=== PATIENT | female | born 1945 | race Caucasian/White ===

== ENCOUNTER → 2023-11-02 14:41 | Outpatient (REF) | payer OTHER, SELFPAY | LOC: DHCBC MAIN 14:41 | PROVIDERS: ATTENDING PHYSICIAN Internal Medicine; FAMILY PHYSICIAN Family Medicine | DX: I48.21 Permanent atrial fibrillation (principal) | CPT/HCPCS: 93306 ==

== ENCOUNTER → 2024-06-20 14:47 | Outpatient (REF) | payer OTHER, SELFPAY | LOC: RCS 14:47 | PROVIDERS: ATTENDING PHYSICIAN Nurse Practitioner Gerontology; FAMILY PHYSICIAN Family Medicine; REFERRING PHYSICIAN Internal Medicine Rheumatology | DX: R06.02 Shortness of breath (principal); M25.511 Pain in right shoulder; M35.3 Polymyalgia rheumatica | CPT/HCPCS: 73030; 93225; 93226 ==

== ENCOUNTER → 2024-08-08 13:16 | Outpatient (REF) | payer OTHER, SELFPAY | LOC: REG 13:16 | PROVIDERS: ATTENDING PHYSICIAN Nurse Practitioner Family | DX: M25.552 Pain in left hip (principal); M79.652 Pain in left thigh | CPT/HCPCS: 73502 ==

== ENCOUNTER 2024-08-31 03:08 | Inpatient (IN) | payer OTHER, SELFPAY ==
[2024-08-30 20:27] LABS: % Basophils 1.2 % (0-2); % Eosinophils 2.3 % (0-6); % Immature Granulocytes 0.4 % (0-0.5); % Lymphocytes 20.6 % (20.5-51.1); % Monocytes 13.6 % (1.7-9.3); % Neutrophils 61.9 % (42.2-75.2); Absolute Basophils 0.1 10^3/uL (0-0.2); Absolute Eosinophils 0.2 10^3/uL (0-0.7); Absolute Lymphocytes 1.7 10^3/uL (1.2-3.4); Absolute Monocytes 1.1 10^3/uL (0.1-0.6); Hematocrit 34.4 % (37.0-47.0); Hemoglobin 10.4 g/dL (12.0-16.0); Mean Corp Hgb Conc. 30.2 g/dL (33.0-37.0); Mean Corpuscular Hgb 26.2 pg (27.0-31.0); Mean Corpuscular Volume 86.6 fL (81.0-99.0); Mean Platelet Volume 8.8 fL (7.4-10.4); Nucleated Red Blood Cells % 0 %; Platelet Count 508 10^3/uL (130-400); Red Blood Cell Count 3.97 10^6/uL (4.20-5.40); Red Cell Dist. Width 15.8 % (11.5-14.5); White Blood Cell Count 8.1 10^3/uL (4.8-10.8)
[2024-08-30 20:53] LABS: ALT (SGPT) 16 U/L (0-35); AST (SGOT) 27 U/L (14-36); Albumin 4.4 g/dl (3.5-5.0); Alkaline Phosphatase 74 U/L (38-126); Blood Urea Nitrogen 11 mg/dl (7-17); Calcium 9.6 mg/dl (8.4-10.2); Carbon Dioxide 34 mmol/L (22-30); Chloride 98 mmol/L (98-107); Glucose 100 mg/dl (70-99); NT-proBNP 1530 pg/ml; Potassium 5.1 mmol/L (3.5-5.1); Sodium 140 mmol/L (135-145); Total Bilirubin 0.5 mg/dl (0.2-1.3); Total Protein 7.2 g/dl (6.3-8.2); eGFR > 60.00
[2024-08-30 21:33] VITALS: BP 159/77
[2024-08-30 21:58] VITALS: BMI 31.2
[2024-08-30 22:00] VITALS: BP 140/84
--- NOTE | 2024-08-30 22:21 | ED.GENMED ---
History of Present Illness
General
Chief Complaint: Breathing Problem
Source: patient
History of Present Illness
History of Present Illness:
Pleasant 79-year-old female presents to the emergency department with shortness of breath that has been progressively worsening for 'years'. She states that for the last few days her dyspnea has been severe. She states that while at rest she
breathes normally but any type of exacerbation causing her shortness of breath. She did notice some lower extremity swelling. Denies fever or chills. Reports no chest pain. She has severe osteoarthritis and is due to see orthopedics today but
had to cancel because she could not ambulate without becoming short of breath. Patient also saw cardiology within the last few weeks. Had a Holter monitor in place that her paroxysmal atrial fibrillation was rediagnosed as atrial fibrillation.
She does take Eliquis and has not missed a dose. She is also rate controlled with diltiazem.
Past History
Past History
ED Past Medical History: HTN, Hypercholesterolemia and Other (Hyperthyroidism, atrial fibrillation); Negative CAD
ED Past Surgical History: Orthopedic
Social History
Tobacco: Non-smoker
Living: with family
Review of Systems
Review of Systems
Allergies reviewed?: Yes
All Other Systems: ROS reviewed and negative except as documented in HPI and ROS
Phy Exam
General Physical Exam
General Presentation: well appearing and no apparent distress
General Skin: warm and dry
General Habitus: normal
General Mental: alert
General Hydration: appears well hydrated
ENT Exam
ENT Exam: EOMI, pharynx normal, neck supple and normocephalic
Eye Exam
Eye Exam: PERRL, cornea clear and conjunctiva normal
Cardiovascular Exam
Cardiovascular Exam: regular rate/rhythm, no edema, no murmur and normal peripheral pulses
Pulmonary Exam
Pulmonary Exam: lungs clear, no respiratory distress, no rales, no crackles, no rhonchi, no stridor, no wheezing and no cough
Breath Sounds: Wheeze: left lower and right lower
Gastrointestinal Exam
Gastrointestinal Exam: normal bowel sounds, non tender, soft, no organomegaly, no pulsatile mass and non distended
Neurological Exam
Neurological Exam: alert, oriented x3, no motor deficits and speech normal
Musculoskeletal Exam
Musculoskeletal Exam: full ROM and no edema
Skin Exam
Skin Exam: normal color, warm/dry, no rash and no petechia
Psychiatric Exam
Psychiatric Exam: normal mood/affect
Scores
Heart Failure Risk
Heart Failure Risk Score: Yes
History of Stroke or TIA: No
History of intubation for respiratory distress: No
Heart rate on ED arrival >/= 110: No
SaO2 <90% on arrival on room air: Yes
HR >/=110 during 3min walk test (or too ill to perform test): Yes
ECG has acute ischemic changes: No
Urea >/=12mmol/L (BUN 33.6mg/dL): No
Serum CO2>/=35mmol/L: No
Troponin I or T elevated to IL Level (0.4mg/dL): No
NT-proBNP >/=5,000ng/L (5,000pg/ml): No
HF Risk Score: 3
Admission Status: HIGH RISK 15.9% Consider SNF treatment or admission to hospital
Course
Orders/Labs/Results
Orders:
Orders
08/30/24 20:10
Electrocardiogram (*1) Urgent
Reason for Study: Shortness of Breath
EKG- Treatment ONCE
08/30/24 20:21
Complete Blood Count/With Diff Urgent
Comprehensive Metabolic Panel Urgent
NT-proBNP Urgent
08/30/24 22:25
CR Chest - 2 Views Urgent
Comment:
Reason For Exam: dyspnea
08/30/24 22:31
Furosemide [Lasix] 40 mg IV NOW STA
08/30/24 23:01
Procalcitonin Urgent
PCT Algorithmm Indication: Respiratory
08/31/24 00:49
CefTRIAXone [Rocephin] 1,000 mg IV NOW STA
Dexamethasone Sod Phosphate [Decadron] 10 mg IV NOW STA
Doxycycline [Vibramycin] 100 mg PO NOW STA
08/31/24 01:23
Blood Culture Q30M
PHU Source: Blood/Venous
Specimen Description:
Blood Culture Q30M
PHU Source: Blood/Venous
Specimen Description:
Abnormal Lab Results
08/30/24
20:21
RBC 3.97 L 10^6/uL
(4.20-5.40)
Hgb 10.4 L g/dL
(12.0-16.0)
Hct 34.4 L %
(37.0-47.0)
MCH 26.2 L pg
(27.0-31.0)
MCHC 30.2 L g/dL
(33.0-37.0)
RDW 15.8 H %
(11.5-14.5)
Plt Count 508 H 10^3/uL
(130-400)
Absolute Monos (auto) 1.1 H 10^3/uL
(0.1-0.6)
Monocytes % 13.6 H %
(1.7-9.3)
Carbon Dioxide 34 H mmol/L
(22-30)
Glucose 100 H mg/dl
(70-99)
08/30/24 20:21
08/30/24 20:21
Vital Signs
Initial and Last Documented VS:
Initial Vital Signs
Temp Pulse Resp Pulse Ox
98.2 F 109 18 92
08/30/24 20:07 08/30/24 20:07 08/30/24 20:07 08/30/24 20:07
Last Documented Vital Signs
Temp Pulse Resp BP Pulse Ox
98.2 F 92 21 125/70 97
08/30/24 20:07 08/31/24 01:15 08/31/24 01:15 08/31/24 01:00 08/31/24 01:15
*Radiology
Radiology exam reviewed: radiology read reviewed (Left basilar pneumonia)
*Pulse Oximetry
Patient hypoxic: yes
*Critical Care Note
Total Time (30-74mins, 75-104mins- exclusive of procedures): Not Applicable
ED Attending Note
-
Portions of this chart may have been created with voice recognition software.� Occasional wrong word or��sound alike� substitutions may have occurred due to the inherent limitations of voice recognition software.
Discharge Plan
Departure
Prescriptions:
No Action
multivitamin [Daily Multiple] 1 EACH tablet
1 tab PO DAILY
atorvastatin 10 MG tablet
10 mg PO DAILY
diltiazem HCl 240 MG capsule,extended release 24hr
240 mg PO BID
Patient Comments:
with 120mg tab
Eliquis 5 MG tablet
5 mg PO BID
thiamine HCl (vitamin B1) 100 MG tablet
100 mg PO BID Qty: 60 0RF
metoprolol succinate 50 MG tablet extended release 24 hr
50 mg PO BID 30 Days Qty: 90 0RF
pantoprazole 40 mg Tablet,Delayed Release (Dr/Ec)
40 mg PO DAILY
Referrals:
Dennis Alonzo MD [Family Provider] -
Interventions
Interventions:
*Risk Screen - Suicide Last Done: 08/30/24 20:07
*General Assessment Last Done: 08/30/24 20:07
*Neglect/Abuse Screening Last Done: 08/30/24 20:07
ED- Fall Risk Assessment Last Done: 08/30/24 21:56
*ED COVID-19 Vaccine History Last Done: 08/30/24 20:07
ED- Cardiac Assessment Last Done: 08/30/24 21:56
ED- Pulmonary Assessment Last Done: 08/30/24 21:56
Discharge Date and Time
Print Language: FRENCH
[2024-08-30 22:54] VITALS: BP 157/84
[2024-08-30 23:00] VITALS: BP 153/104
[2024-08-30] MEDS: LASIX 40 MG IV (23:03)
[2024-08-30 23:38] LABS: Procalcitonin < 0.05 ng/ml (0.0-0.25)
[2024-08-31] VITALS (11 sets, daily range): BP systolic 98–147; BP diastolic 66–90; PULSE 93–125; O2SAT 94–98; BMI 29.5
[2024-08-31] MEDS: ROCEPHIN 1000 MG IV (01:25)
[2024-08-31] MEDS: DECADRON 10 MG IV (01:25)
[2024-08-31] MEDS: VIBRAMYCIN 100 MG PO (01:25)
--- NOTE | 2024-08-31 02:57 | HPS.HSE ---
Family Physician
-
Family Physician: Dennis Alonzo
Chief Complaint
-
SOB
History of Present Illness
Patient is an 79y F with PMH significant for A-Fib, thyroid disease and DJD who presents to ED complaining of SOB. Patient states that she has had progressive dyspnea over the past few weeks to months. She notes that she becomes SOB with
activity and - more recently - even with conversation. She denies any chest pain, orthopnea, cough, fevers or chills. She has noted swelling of the ankles over the past week or so. With worsening symptoms, she called her PCP this evening and was
directed to present to the ED for evaluation.
Medical History
Past Medical History
Past Medical History: Reports Other
Additional Past Medical History:
Paroxysmal Atrial Fibrillation
Polymyalgia Rheumatica
DJD
Hypothyroidism
Hypertension
GERD / Gastric Ulcer / Hiatal Hernia
Spinal Stenosis
Iron Deficiency Anemia
Past Surgical History: Reports Other
Additional Past Surgical History:
Carpal Tunnel Release
Right CHER
DCCV x 2
Social History
Tobacco: Former Smoker (Quit smoking 50 years ago. Approx 10 pack years total use.)
Alcohol: None
Drug: None
Family History
Family History: Not pertinent
Allergies / Home Medications
Allergies reflects when Allergies were last updated in [facility].
Home Medications with original date entered in [facility]
Allergy/Medication List:
Allergies
Allergy/AdvReac Type Severity Reaction Status Date / Time
Penicillins Allergy Rash Verified 08/30/24 20:10
Home Medications
multivitamin (Daily Multiple tablet) 1 tab PO DAILY Supplement 03/19/13
atorvastatin 10 mg tablet 10 mg PO DAILY High cholesterol 10/03/15
apixaban 5 mg tablet (Eliquis) 5 mg PO BID Blood clot prevention/tx 05/23/20
diltiazem HCl 240 mg capsule,extended release 24 hr 240 mg PO BID Blood pressure 05/23/20
thiamine HCl (vitamin B1) 100 mg tablet 100 mg PO BID #60 tabs 05/29/20
metoprolol succinate 50 mg tablet,extended release 24 hr 50 mg PO BID 30 days #90 tabs 05/30/20
pantoprazole 40 mg tablet,delayed release 40 mg PO DAILY 08/31/24
Review of Systems
-
History Source: Patient
A 12 point ROS was completed and negative except as noted: Yes
Constitutional: Reports Fatigue; Denies Fever or Chills
EENT: Denies Sore Throat
Respiratory: Reports Trouble Breathing; Denies Cough
Cardiac: Denies Chest Pain or Palpitations
Abdomen/GI: Denies Abdominal Pain, Nausea, Vomiting or Diarrhea
: Denies Dysuria, Frequency or Flank Pain
Musculoskeletal: Reports Joint Pain and Edema; Denies Muscle Pain
Neurological: Denies Dizzy or Headache
Psych: Denies Depression or Anxiety
Physical Exam
Vital Signs
Vital Signs
Temp Pulse Resp BP Pulse Ox
98.2 F 97 25 138/69 95
08/30/24 20:07 08/31/24 02:15 08/31/24 02:15 08/31/24 02:00 08/31/24 02:15
Physical Exam
General: Other (79y F in no acute distress.)
HEENT: Moist mucous membranes, PERRLA and Other (No JVD / HJR)
Respiratory: Other (Few bibasilar rales. No wheeze / rhonchi.)
Cardiac: S1/S2, Irregular Rhythm and Murmur (II/ MICHAEL)
GI: Soft, Non Tender, Non Distended and Normal Bowel Sounds
Musculoskeletal: No Clubbing, No Cyanosis and Other (1+ pitting edema b/l ankles.)
Neuro: AO x 3
Laboratory Results
-
08/30/24 20:21
08/30/24 20:21
Laboratory Results
Total Bilirubin 0.5 mg/dl (0.2-1.3) 08/30/24 20:21
AST 27 U/L (14-36) 08/30/24 20:21
ALT 16 U/L (0-35) 08/30/24 20:21
Alkaline Phosphatase 74 U/L (38-126) 08/30/24 20:21
Impression/Plan
-
A/P: Patient is an 79y F with PMH significant for A-Fib, hypertension and hypothyroidism who presents to ED complaining of progressive SAUL over the past several weeks / months.
Acute HF - Suspected Preserved EF
- Admit for further evaluation and treatment.
- No prior h/o CHF. Echo done 10/2023 with > 75% EF with mild AR and mild pulm HTN.
- Gradual / progressive nature of symptoms with LE edema and absence of cough / infectious symptoms suggestive of CHF.
- IV Lasix given in the ED with effective diuresis.
- Continue IV Lasix daily for now and follow I/Os, daily weights and symptoms.
- Update Echo.
- Cardiology evaluation for additional recommendations.
- Check TFTs.
LLL Lesion
- CXR done in the ED with rounded opacity at the L base.
- No cough, fever, leukocytosis, etc.
- Procalcitonin is undetectable.
- Symptoms not suggestive of pneumonia / infectious process.
- Check CT chest for further evaluation.
- Consider Pulmonary evaluation depending on results.
Paroxysmal Atrial Fibrillation
- Currently in A-Fib with controlled ventricular rates.
- Continue current rate control medications with holding parameters.
- Continue Eliquis for stroke risk reduction.
Benign Hypertension
- Stable. Holding parameters as noted above.
- Follow for changes with IV diuresis.
Hypothyroidism
- Patient with documented history of thyroid disease with Graves and hypothyroidism
- Not currently on any T4 replacement.
- Check TFTs and add replacement therapy if necessary.
Polymyalgia Rheumatica
DJD
- Chronic pain / ambulatory dysfunction long attributed to PMR.
- More recently evaluated by Ortho and noted to have diffuse / advanced DJD (shoulder, L hip, etc).
- Has had ambulatory dysfunction due to pain - recently worsened with added dyspnea component.
- PT / OT evaluations.
- Follow-up with Ortho as an outpatient.
GERD
Hiatal Hernia
- Stable. No symptoms of heartburn / reflux.
- Continue PPI daily - especially given h/o bleeding ulcer and chronic anticoagulation.
Chronic Anemia
- Iron deficiency according to outpatient records.
- Hgb currently above usual baseline.
- Follow for any changes.
DVT Prophylaxis: Eliquis
Code Status: DNR
--- NOTE | 2024-08-31 05:22 | PTCARENOTE ---
Pt received on unit at approximately 0430. Pt pulled over in bed. Pt AAOx3 VSS placed on tele. Ptoriented to room and able to make needs known.
[2024-08-31 08:56] LABS: Hematocrit 34.3 % (37.0-47.0); Hemoglobin 10.2 g/dL (12.0-16.0); Mean Corp Hgb Conc. 29.7 g/dL (33.0-37.0); Mean Corpuscular Hgb 25.5 pg (27.0-31.0); Mean Corpuscular Volume 85.8 fL (81.0-99.0); Mean Platelet Volume 9.1 fL (7.4-10.4); Platelet Count 492 10^3/uL (130-400); Red Cell Dist. Width 15.7 % (11.5-14.5); White Blood Cell Count 7.1 10^3/uL (4.8-10.8)
[2024-08-31] MEDS: PROTONIX 40 MG PO (09:00)
[2024-08-31] MEDS: VITAMIN B1 100 MG PO ×2 (09:00→19:30)
[2024-08-31] MEDS: TOPROL XL 50 MG PO ×3 (09:00→22:48)
[2024-08-31] MEDS: LIPITOR 10 MG PO (09:01)
[2024-08-31] MEDS: ELIQUIS 5 MG PO ×2 (09:01→19:30)
[2024-08-31] MEDS: CARDIZEM CD 240 MG PO ×2 (09:04→19:30)
[2024-08-31] MEDS: LASIX 40 MG IV (09:05)
--- NOTE | 2024-08-31 09:05 | CON.CAR ---
Addendum entered and electronically signed by Jaziel Carney MD 08/31/24 11:57:
79-year-old female history of permanent atrial fibrillation on Eliquis, hypertension, hyperlipidemia,right bundle branch block, PAD and PMR presents for acute on chronic dyspnea on exertion. She has had shortness of breath with exertion for 8 years
with recent worsening. Of note in the past echocardiogram showed mildly elevated pulmonary pressure 47 mmHg with an IVC that did not collapse. She had intermittently tried Lasix with no improvement of symptoms. She had an ischemic evaluation for
the same symptoms 3 years ago. She has PFTs planned for next month. Currently, she states she feels so much better if she wears oxygen. However when I watched her ambulate to the bathroom, telemetry does show elevated heart rates in the 120s. On
exam, she has in a irregularly irregular rate and rhythm with no murmur. Lungs are clear to auscultation bilaterally. Extremities are warm well-perfused. Echo reviewed above. Telemetry reviewed above. Acute on chronic dyspnea in the setting of
mild pulmonary hypertension, atrial fibrillation with rapid ventricular response, deconditioning in the setting of severe arthritis. All of these issues are playing a role likely. I will increase her morning rate control as her accelerated rates
with exertion may be adding to her symptoms. Metoprolol 100 mg in the morning and 50 mg in the evening will be ordered. She has had a brisk response to IV Lasix. Certainly with her echo findings I would think this would help her feel better.
Will transition to an every other day Lasix standing dose. I will update her echocardiogram to ensure no acute worsening of her pulmonary hypertension. I encouraged her to follow-up with the PFTs that are scheduled for September. If echocardiogram
is without significant abnormality would recommend discharging home on new drug regimen. Close follow-up will be arranged.
Original Note:
Consultation
Consultation Request
Date/Time Consultation Requested: 08/31/24 4:30a
Date/Time Consultation Performed: 08/31/24 9a
Requesting Provider: Dr. Rao
Performing Provider: YONATAN Hurst for Dr. Carney
Reason for Consultation: CHF
Medical History
-
Chief Complaint: sob
History of Present Illness:
Mrs. Jones is an 79 yo female with permanent Afib on Eliquis, HTN, hyperlipidemia, RBBB, PAD, and PMR on steroids, who presents to the ER with c/o SOB for the last 8 years. She has tried Lasix as an outpatient (Lasix 40mg PRN) without
improvement. We are consulted for SOB. She was given IV Lasix in the ER and her weight decreased but she denies SOB is any better.
Past Medical History
Past Medical History: Other (as above)
Past Surgical History: Other (as above)
Social History
Tobacco: Non-Smoker
Living: Alone
Family History
Family History: Reviewed & Not Pertinent
Allergies / Home Medications
Allergy/AdvReac Type Severity Reaction Status Date / Time
Penicillins Allergy Rash Verified 08/30/24 20:10
�Medication �Instructions �Recorded �Confirmed �Type
multivitamin (Daily Multiple 1 tab PO DAILY Supplement 03/19/13 08/31/24 History
tablet)
atorvastatin 10 mg tablet 10 mg PO DAILY High cholesterol 10/03/15 08/31/24 History
apixaban 5 mg tablet (Eliquis) 5 mg PO BID Blood clot 05/23/20 08/31/24 History
prevention/tx
diltiazem HCl 240 mg 240 mg PO BID Blood pressure 05/23/20 08/31/24 History
capsule,extended release 24 hr
thiamine HCl (vitamin B1) 100 mg 100 mg PO BID #60 tabs 05/29/20 08/31/24 Rx
tablet
metoprolol succinate 50 mg 50 mg PO BID 30 days #90 tabs 05/30/20 08/31/24 Rx
tablet,extended release 24 hr
pantoprazole 40 mg tablet,delayed 40 mg PO DAILY 08/31/24 08/31/24 History
release
Review of Systems
-
History Source: Patient
All other systems: Negative unless noted
Physical Exam
Vital Signs
Temp Pulse Resp BP Pulse Ox
98 F 106 19 124/78 95
08/31/24 07:34 08/31/24 07:34 08/31/24 07:34 08/31/24 07:34 08/31/24 07:34
Lab Results
08/31/24 08:41
[id number] Pept 1530 pg/ml 08/30/24 20:21
Physical Exam
General: Well Developed and Well Nourished
HEENT: Normocephalic and Moist Mucous Membranes
Respiratory: Non Labored Respirations and Other (diminished b/l bases)
Cardiac: S1/S2 and Irregular Rhythm
Breast: Deferred by me
GI: Soft, Non Tender, Non Distended and Normal Bowel Sounds
Genito-urinary: No Costovertebral Tender
Musculoskeletal: No Clubbing, No Cyanosis and No Edema
Skin: Warm and Dry
Neuro: AO x 3
Hematologic/Lymphatic: No Lymphadenopathy
Psych: Calm
Impression / Plan
-
SOB - acute on chronic.
- agree with diuresis, continue.
- at home she does not use PRN Lasix as she feels this does not help her SOB.
- she had a Lexiscan 2020 w/o ischemia and has refused further testing.
- management per primary service, O2.
- PFTs ordered as an outpatient, moderate obstruction on PFT in 2016.
- check echo.
Afib - permanent.
- rate controlled on Diltiazem and Toprol, continue.
- OAC with Eliquis, continue.
- asymptomatic.
HTN - well controlled on meds, continue.
HLD - stable on Lipitor, continue.
Data Reviewed
-
EKG: Tracing Personally Visualized and interpreted
Radiology: Report Reviewed by me (cxr: left basilar PNA)
Medical Tests (Nuc Med, Echo etc): Report Reviewed by me (echo 2020: EF 55-60%, mild cLVH, mild MR/AR, PASP 46mmHg.)
Labs: Labs Reviewed by me
Old Records: Reviewed
[2024-08-31 09:22] LABS: Troponin I 0.013 ng/ml
[2024-08-31 10:08] LABS: Blood Urea Nitrogen 12 mg/dl (7-17); Calcium 9.6 mg/dl (8.4-10.2); Carbon Dioxide 33 mmol/L (22-30); Chloride 96 mmol/L (98-107); Estimated Creatinine Clearance 52 ml/min; Glucose 141 mg/dl (70-99); HDL Cholesterol 61 mg/dl; LDL Cholesterol, Calculated 74 mg/dl; Potassium 4.4 mmol/L (3.5-5.1); Sodium 140 mmol/L (135-145); Total Cholesterol 147 mg/dl (50-199); Triglyceride 61 mg/dl (10-149); Very Low Density Lipoprotein 12 mg/dl (0-30); eGFR > 60.00
--- NOTE | 2024-08-31 10:13 | CM ---
Patient seen at bedside in [facility]. Patient stated that she lives alone in a split level with 6 step to enter and 6 steps to utility room. Patient has a walker and a cane at home. Patient PCP is Dr. Alonzo and she uses the [facility] in [place]. Patient
is driving and stated that she is independent of adl's. Patient plan is to go home with VN vs home with no needs.
Plan; home with VN vs SNF; pending assessment
[2024-08-31 11:08] LABS: TSH Reflex To Free T4 0.75 uIU/ml (0.47-4.68)
--- NOTE | 2024-08-31 11:12 | W.PN.HOSP.TC ---
Addendum entered and electronically signed by Hussein Camacho MD 08/31/24 14:55:
Seen and examined by me independently in collaboration with the emergency medical service coordinator.
Lab data and imaging data reviewed.
Addendum as below :
Patient presented with increasing shortness of breath. She also had associated weakness and tiredness with it. No chest pains.
Patient currently on nasal cannula without respiratory distress. Chest sounds clear. Few left basal crackles heard. Trace lower extremity edema.
Weight is not too far away from the baseline but decrease the since admission and diuresis. She has not seen much of change with regards to breathing she says.
Clinical concern is of heart failure. Continue with diuresis and follow the progress. Also follow on telemetry to make sure there is no rate control issues with A-fib accounting for the symptoms. Echo pending. Cardiology following.
Chronic left basilar opacity which is suspect probably atelectasis secondary to moderate hiatus hernia. Clinically she is not acting like infectious pneumonia. Procalcitonin normal. Continue to hold antibiotics. CT of the chest pending.
Original Note:
Today's Communication/Plan
-
Pending CT chest
Pending echo
Appreciate cardiology input
Assessment / Plan
Assessment / Plan
Patient is an 79y F with PMH significant for A-Fib, thyroid disease and DJD who presents to ED complaining of SOB.
#Acute heart failure, suspected preserved ejection fraction
Echo in October of this year showed ejection fraction greater than 75% with mild aortic regurgitation and mild pulmonary hypertension
Repeat echo today
Progressive lower extremity edema with dyspnea, without cough
Continue IV diuresis with Lasix
Follow ins and outs/daily weights and symptoms
Cardiology following appreciate input
Check TFTs
#Left lower lobe lesion
Chest x-ray in ED showed rounded opacity at left base
No cough, fever, leukocytosis
Procalcitonin negative
Pending chest CT today
Consider pulmonology consult
#Paroxysmal A-fib
Per cardiology recommendations, metoprolol 100 in the morning and 50 in the evening. Every other day standing Lasix dose at home.
Continue Eliquis
#Benign hypertension
Stable
Follow for changes with IV diuresis
#Hypothyroidism
History of thyroid disease with Graves' and hypothyroidism
No current management
Add replacement therapy if needed
#Polymyalgia rheumatica
Chronic pain and dysfunction for a long time attributed to PMR
PT OT
Follow-up with Ortho outpatient
#GERD and hiatal hernia
Stable
Continue PPI
#Chronic anemia
Hemoglobin above baseline
Continue to follow
DVT prophylaxis�Eliquis
DNR
Anticipated Discharge: Within 24 hours
Subjective/Interval History
-
Date of Service: August 31, 2024
Patient is an 79y F with PMH significant for A-Fib, thyroid disease and DJD who presents to ED complaining of SOB. She reports that overnight she has diuresed significantly and feels better. She reports no headaches, nausea, vomiting, chest
pain, or abdominal pain. She still reports mild shortness of breath.
Objective Data
-
Labs:
Laboratory Results
08/31/24
08:41
WBC 7.1
Hgb 10.2 L
Hct 34.3 L
Plt Count 492 H
Sodium 140
Potassium 4.4
Chloride 96 L
Carbon Dioxide 33 H
BUN 12
Creatinine 0.7
Glucose 141 H
Calcium 9.6
Vital Signs:
Vital Signs
Temp Pulse Resp BP Pulse Ox
98 F 106 19 124/78 95
08/31/24 07:34 08/31/24 07:34 08/31/24 07:34 08/31/24 07:34 08/31/24 07:34
I&O
08/30/24 08/31/24 09/01/24
06:59 06:59 06:59
Output Total 4015 / 1475
Balance -1475 / -1475
Review of Systems
-
History Source: Patient
Constitutional: Reports No Symptoms
EENT: Reports No Symptoms Reported
Respiratory: Reports Trouble Breathing
Cardiac: Reports No Symptoms
Abdomen/GI: Reports No Symptoms
Genitourinary: Reports Frequency (Secondary to Lasix)
Musculoskeletal: Reports No Symptoms
Skin: Reports No Symptoms
Neuro: Reports No Symptoms
Physical Exam
-
General: Well Developed, Well Nourished, No Apparent Distress, Comfortable and Conversant
HEENT: Normocephalic and Atraumatic
Respiratory: Rales
Cardiac: S1/S2 and Irregular Rhythm
GI: Soft, Nontender, Nondistended and Normal Bowel Sounds
Musculoskeletal: No Clubbing, No Cyanosis, Edema, Right Lower Extrem and Edema, Left Lower Extrem
Skin: Warm and Dry
Neuro: AO x 3
Psych: Calm
Data Reviewed
-
Diagnostic Radiology: Report Reviewed by me
Labs: Labs Reviewed by me and Discussed with Physician
Old Records: Reviewed
[2024-08-31 11:18] LABS: Troponin I 0.014 ng/ml
[2024-08-31 16:42] LABS: Troponin I 0.014 ng/ml
[2024-09-01 02:48] VITALS: BP 114/60
[2024-09-01 07:00] VITALS: BP 130/65
[2024-09-01] MEDS: PROTONIX 40 MG PO (08:35)
[2024-09-01] MEDS: CARDIZEM CD 240 MG PO (08:35)
[2024-09-01] MEDS: LIPITOR 10 MG PO (08:36)
[2024-09-01] MEDS: VITAMIN B1 100 MG PO (08:36)
[2024-09-01] MEDS: TOPROL XL 100 MG PO (08:37)
[2024-09-01] MEDS: ELIQUIS 5 MG PO (08:38)
[2024-09-01 11:00] VITALS: BP 138/73
--- NOTE | 2024-09-01 11:11 | W.PN.HOSP.TC ---
Today's Communication/Plan
-
dc
Assessment / Plan
Assessment / Plan
Patient is an 79y F with PMH significant for A-Fib, thyroid disease and DJD who presents to ED complaining of SOB.
#Acute heart failure preserved ejection fraction
Echo in October of this year showed ejection fraction greater than 75% with mild aortic regurgitation and mild pulmonary hypertension
Repeat echo LVEF is 65-70% by visual estimation
Progressive lower extremity edema with dyspnea, without cough
Diuresis changed to p.o. every 48 hours
Improved weight
Cardiology following -appreciate input
#Left lower lobe lesion
Chest x-ray in ED showed rounded opacity at left base
No cough, fever, leukocytosis
Procalcitonin negative
chest CT shows atelectasis adjacent to the left paraesophageal hiatus hernia
No further eval recommended
#Paroxysmal A-fib
Per cardiology recommendations, metoprolol 100 in the morning and 50 in the evening. Every other day standing Lasix dose at home.
Continue Eliquis
#Benign hypertension
Stable
Follow for changes with IV diuresis
#Hypothyroidism
History of thyroid disease with Graves' and hypothyroidism
No current management
Add replacement therapy if needed
#Polymyalgia rheumatica
Chronic pain and dysfunction for a long time attributed to PMR
PT OT
Follow-up with Ortho outpatient
#GERD and hiatal hernia
Stable
Continue PPI
#Chronic anemia
Hemoglobin above baseline
Continue to follow
DVT prophylaxis�Eliquis
DNR
Oxygenation levels for fine and ambulation with PT yesterday.
DC home today.
Anticipated Discharge: Today
Subjective/Interval History
-
Date of Service: September 01, 2024
Feeling improved. Denies shortness of breath. No palpitations or chest pain.
Tolerating diet.
Objective Data
-
Vital Signs:
Vital Signs
Temp Pulse Resp BP Pulse Ox
98.2 F 84 18 130/65 95
09/01/24 07:00 09/01/24 07:00 09/01/24 07:00 09/01/24 07:00 09/01/24 07:00
I&O
08/31/24 09/01/24 09/02/24
06:59 06:59 06:59
Intake Total 720 / 720
Output Total 1475 / 1475
Balance -1475 / -1475 720 / 720
Review of Systems
-
Constitutional: Denies Fever
EENT: Denies Sore Throat
Respiratory: Denies Cough
Neuro: Denies Dizzy
Physical Exam
-
General: No Apparent Distress
HEENT: Moist Mucous Membranes
Respiratory: Clear to Auscultation
Cardiac: Regular Rhythm and S1/S2
GI: Soft
Neuro: AO x 3
Psych: Calm
--- NOTE | 2024-09-01 12:51 | CM ---
Chart reviewed and patient is a possible new CHF patient, visiting nurse options reviewed with patricio and patient is agreeable to [facility]. Referral sent to [facility].
Plan; Home with [facility], friend to transport.
--- NOTE | 2024-09-01 15:39 | W.DCSUMMARY ---
Discharge Summary
Discharge Data
Date of Admission: 08/31/24
Date of Discharge: 09/01/24
-
Pending Results: No
Hospital Course
Primary diagnosis:
Acute heart failure with preserved EF
Paroxysmal atrial fibrillation
Secondary diagnosis:
Left paraesophageal hiatus hernia-asymptomatic
Benign hypertension
Hypothyroidism
Hospital course:
Patient with history of permanent atrial fibrillation on Eliquis, hypertension presented with shortness of breath with exertion with recent worsening. She had shortness of breath for a long time but got worsened recently. Her lungs were clear and
there was a concern about the left basal chronic opacity. She did not have clinical symptoms of pneumonia.
She had a prior echocardiogram which showed mildly elevated pulmonary pressures of 47 mmHg with an IVC that did not collapse. She also had atrial fibrillation with some rapid ventricular response and there is also deconditioning in setting of
severe arthritis. The clinical suspicion was of acute heart failure. She had a echocardiogram which showed EF of 65 to 70%, mild concentric LVH and estimated pulm artery pressures of 19 mmHg which is an improvement compared to previous echo.
She was put on Lasix and her weight did decrease from 154 pounds to 148 pounds. She was not hypoxic. Cardiology recommended to continue with Lasix every other day going forward.
Also with regards to her A-fib rates that they increase the metoprolol to 100 mg in the morning and The 50 mg at night.
With regards left basal opacity noted on the chest x-ray she had a chest CT which showed left paraesophageal head dystonia and an associated atelectasis. No evidence of consolidation or mass. Again she was not hypoxic. She was not symptomatic
from her hiatus hernia at the current time.
Consultants on board:
Cardiology-Haydee Fong
Discharge Plan
-
Patient Disposition: Home (Routine Discharge)
Discharge Diagnosis/Procedures: Acute heart failure with preserved EF
Diet: 2 Gram Sodium
Activity: As tolerated
Driving Restrictions: As prior to admission
Bathing Restrictions: None
Specialty Instructions: Weigh Daily- Call MD for wt gain/loss 3 lbs overnight/5 lbs in 1 week
Instructions: *CBC Heart Failure Instructions
Referrals:
Dennis Alonzo MD [Family Provider] - in less than 1 week
Kristel Denney CRNP [Specified Professional Personl] - 09/24/24 3:00 pm
Prescriptions:
New
furosemide 40 mg Tablet
40 mg PO Q48H Qty: 30 0RF
metoprolol succinate 100 mg Tablet Extended Release 24 Hr
100 mg PO DAILY Qty: 30 0RF
Rx Instructions:
Dose changed from 50 mg twice a day to 100 mg in the morning and 50 in the evening
Continued
multivitamin [Daily Multiple] 1 EACH tablet
1 tab PO DAILY
atorvastatin 10 MG tablet
10 mg PO DAILY
diltiazem HCl 240 MG capsule,extended release 24hr
240 mg PO BID
Patient Comments:
with 120mg tab
Eliquis 5 MG tablet
5 mg PO BID
thiamine HCl (vitamin B1) 100 MG tablet
100 mg PO BID Qty: 60 0RF
pantoprazole 40 mg Tablet,Delayed Release (Dr/Ec)
40 mg PO DAILY
Changed
metoprolol succinate 50 MG tablet extended release 24 hr
50 mg PO HS 30 Days Qty: 90 0RF
Rx Instructions:
Dose changed from 50 mg twice a day to 100 mg in the morning and 50 in the evening
Discharge Orders:
Discharge Patient (As Directed); Ordered 09/01/24
Ordered By: Hussein Camacho
Discharge Date and Time
Print Language: ARABIC
== END 2024-09-01 16:30 | disposition home health service (06) | DRG 291 ==
LOC: 4 WEST ACU 03:08
PROVIDERS: Emergency Medicine; ADMITTING PHYSICIAN Hospitalist; ATTENDING PHYSICIAN Internal Medicine; CONSULT PHYSICIAN Internal Medicine Cardiovascular Disease; EMERGENCY PHYSICIAN Student in an Organized Health Care Education/Training Program; FAMILY PHYSICIAN Family Medicine
DX: I11.0 Hypertensive heart disease with heart failure (principal); I50.31 Acute diastolic (congestive) heart failure; I48.21 Permanent atrial fibrillation; J98.11 Atelectasis; E03.9 Hypothyroidism, unspecified; E07.9 Disorder of thyroid, unspecified; M19.019 Primary osteoarthritis, unspecified shoulder; M35.3 Polymyalgia rheumatica; G89.29 Other chronic pain; K21.9 Gastro-esophageal reflux disease without esophagitis; K44.9 Diaphragmatic hernia without obstruction or gangrene; D50.9 Iron deficiency anemia, unspecified; Z66 Do not resuscitate; Z79.01 Long term (current) use of anticoagulants; Z59.89 Other problems related to housing and economic circumstances
CPT/HCPCS: 71046; 71260; 80048; 80053; 80061; 83880; 84145; 84443; 84484; 85025; 85027; 87040; 93005; 93306; 96374; 96375; 97162; 97166; 99285; Q9967

== ENCOUNTER → 2024-12-12 12:15 | Outpatient (REF) | payer OTHER, SELFPAY | LOC: PAVMRI 12:15 | PROVIDERS: ATTENDING PHYSICIAN Physical Medicine & Rehabilitation; FAMILY PHYSICIAN Family Medicine | DX: M54.16 Radiculopathy, lumbar region (principal) | CPT/HCPCS: 72148 ==

== ENCOUNTER → 2024-12-26 12:53 | Outpatient (REF) | payer OTHER, SELFPAY | LOC: RCS 12:53 | PROVIDERS: ATTENDING PHYSICIAN Physical Medicine & Rehabilitation; FAMILY PHYSICIAN Family Medicine | DX: Z01.818 Encounter for other preprocedural examination (principal) | CPT/HCPCS: 93005 ==

== ENCOUNTER → 2025-05-07 11:54 | Outpatient (REF) | payer OTHER, SELFPAY | LOC: RAD 11:54 | PROVIDERS: ATTENDING PHYSICIAN Internal Medicine; FAMILY PHYSICIAN Family Medicine | DX: Z87.891 Personal history of nicotine dependence (principal); I50.32 Chronic diastolic (congestive) heart failure | CPT/HCPCS: 71046 ==

== ENCOUNTER → 2025-05-24 13:33 | Outpatient (REF) | payer OTHER, SELFPAY | LOC: RCS 13:33 | PROVIDERS: ATTENDING PHYSICIAN Internal Medicine; FAMILY PHYSICIAN Family Medicine | DX: I50.32 Chronic diastolic (congestive) heart failure (principal) | CPT/HCPCS: 93306 ==

== ENCOUNTER 2025-08-20 20:25 | Inpatient (IN) | payer OTHER, SELFPAY ==
[2025-08-20] VITALS (8 sets, daily range): BP systolic 119–150; BP diastolic 56–99; BMI 35.7; BMI 26.8
[2025-08-20 17:26] LABS: Hematocrit 35.9 % (37.0-47.0); Hemoglobin 11.9 g/dL (12.0-16.0); Mean Corp Hgb Conc. 33.1 g/dL (33.0-37.0); Mean Corpuscular Volume 94.7 fL (81.0-99.0); Nucleated Red Blood Cells % 0 %; Platelet Count 364 10^3/uL (130-400); Red Cell Dist. Width 16.8 % (11.5-14.5)
[2025-08-20 17:42] LABS: ALT (SGPT) 12 U/L (0-35); AST (SGOT) 22 U/L (14-36); Albumin 4.7 g/dl (3.5-5.0); Alkaline Phosphatase 89 U/L (38-126); Blood Urea Nitrogen 9 mg/dl (7-17); Calcium 9.6 mg/dl (8.4-10.2); Carbon Dioxide 32 mmol/L (22-30); Chloride 92 mmol/L (98-107); Glucose 128 mg/dl (70-99); Potassium 4.4 mmol/L (3.5-5.1); Sodium 132 mmol/L (135-145); Total Protein 7.6 g/dl (6.3-8.2); eGFR > 60.00
[2025-08-20 17:48] LABS: COVID-19 Antigen Negative (Negative)
--- NOTE | 2025-08-20 17:51 | ED.GENMED ---
History of Present Illness
General
Chief Complaint: Breathing Problem
Time Seen by Provider: 08/20/25 17:51
History of Present Illness
History of Present Illness:
FOCUSED PAST MEDICAL HISTORY
- Former smoker, A-fib, high blood pressure, thyroid disease.
REVIEW OF OLD RECORDS
- Patient reportedly had room air sat of 79% at urgent care
- BNP was 1530 1 year ago
- The admission from August up to indicate the patient was admitted with HFpEF
- Prior CT showed large paraesophageal hiatal hernia
- Echo May 2025 showed EF 65 to 70% mild aortic stenosis and tricuspid regurgitation as progressed to mild/moderate
Note:
CHIEF COMPLAINT(S)
Low oxygen saturation and leg swelling.
HISTORY OF PRESENT ILLNESS
The patient is an 80-year-old female with a past medical history significant for heart failure, who presented with concerns regarding low oxygen saturation and leg swelling. The patient was evaluated at an urgent care center where her oxygen
saturation level was noted to be 72%. She normally does not require supplemental oxygen. The patient avoided taking her prescribed furosemide (Lasix) due to the frequent urination it causes, which may have contributed to her current symptoms of leg
swelling.
Her cardiac evaluation history includes having seen both a plastic injection mold maker and fur vault attendant, with recorded B-type Natriuretic Peptide (BNP) levels rising from 1,500 a year ago to 3,500, suggestive of worsening heart failure. She denied any recent
chest pain, but reported general body aches. Breath sounds revealed diminished air movement and the presence of crackles, suggesting pulmonary fluid accumulation. No imaging, such as a chest x-ray, has been performed yet during this visit.
The patients condition outside the hospital revealed oxygen saturation levels fluctuating, initially recorded as 72% at urgent care. After a nebulizer treatment, her saturation dropped to 91% by the time she entered her car, prompting further
evaluation.
PAST MEDICAL AND SURGICAL HISTORY
History of heart failure.
EXTERNAL RECORDS REVIEWED
According to previous records from a hospital visit in August, the patient has documented heart failure.
CHRONIC MEDICAL CONDITIONS SIGNIFICANTLY AFFECTING CARE
Heart failure.
SOCIAL HISTORY
The patient does not usually use supplemental oxygen.
REVIEW OF SYSTEMS
- General: Reported body aches.
- Cardiovascular: Leg swelling noted.
- Respiratory: Low oxygen saturation; diminished breath sounds with crackles.
PHYSICAL EXAM
General: Awake and alert, no significant respiratory distress, sats are 96% on 6 L
Skin: Warm, dry.
Head: Normocephalic, atraumatic.
Neck: Supple, trachea midline.
Eye Ears, nose, mouth and throat: Oral mucosa moist.
Cardiovascular: Normal peripheral perfusion, 1+ bilateral lower extremity edema
Respiratory: Respirations are non-labored; diminished breath sounds with faint crackles
Gastrointestinal: Abdomen nondistended.
Back: Normal range of motion, Normal alignment.
Musculoskeletal: Normal ROM, normal strength.
Neurological: Alert and oriented to person, place, time, and situation, No focal neurological deficit observed.
Psychiatric: Cooperative, appropriate mood & affect.
PLAN
The plan includes obtaining a chest x-ray to investigate pulmonary fluid accumulation, considering hospital admission based on oxygen saturation levels, and discussing the necessity of furosemide (Lasix) use for managing fluid retention.
DIFFERENTIAL DIAGNOSIS
The Differential Diagnosis includes, in no particular order and is not limited to:
1. Heart failure exacerbation.
2. Chronic obstructive pulmonary disease.
3. Pneumonia.
4. Pulmonary edema.
5. Pulmonary embolism.
6. Acute respiratory distress syndrome.
7. Pleural effusion.
8. Asthma exacerbation.
9. Anemia.
10. Renal insufficiency.
RADIOLOGY
- Chest x-ray by my read shows pulmonary vascular congestion
EKG
- A-fib 95, right axis deviation, incomplete right bundle branch block
LABS
- BNP 3510
UPDATE
-SUMMARY OF ENCOUNTER
The patient, an 80-year-old female with a history of heart failure, was seen in the emergency department due to concerns about low oxygen saturation and leg swelling. At urgent care, her oxygen saturation was noted to be as low as 72%, but improved
with nebulizer treatment and supportive care. During the visit, a chest x-ray was reviewed, revealing possible fluid accumulation, indicative of pulmonary edema or heart failure exacerbation. Given her condition and the fact that she has not adhered
to furosemide (Lasix) therapy, it was recommended that she be admitted for further monitoring and to manage her fluid status with diuretics.
DISPOSITION
Admit
ASSESSMENT
The patient presents with symptoms suggestive of heart failure exacerbation, likely due to fluid overload from noncompliance with diuretic therapy.
PLAN
Obtain admission to the hospital for close monitoring and administration of intravenous diuretics (furosemide) to manage fluid overload. Continue supplemental oxygen therapy as needed to maintain oxygen saturation levels. Monitor fluid balance and
adjust diuretic therapy accordingly based on response.
INDEPENDENT REVIEW OF LABS AND INTERPRETATION OF TESTS
My independent interpretation of the chest x-ray shows a possible fluid buildup, consistent with pulmonary edema, suggestive of heart failure exacerbation.
MEDICATION RECONCILIATION
Prescription medication management includes initiation of furosemide (Lasix) therapy to manage pulmonary fluid accumulation and improve symptoms of heart failure exacerbation.
MEDICAL DECISION MAKING
- Number and Complexity of Problems Addressed: Chronic conditions affecting care include heart failure. Differential Diagnosis includes heart failure exacerbation, chronic obstructive pulmonary disease, pneumonia, pulmonary edema, pulmonary
embolism, acute respiratory distress syndrome, pleural effusion, asthma exacerbation, anemia, and renal insufficiency.
- Data:
- Category 1: Non-emergency department records reviewed. External record reviewed and previously documented heart failure exacerbation were noted.
- Category 3: Discussion of management with the hospital plastic injection mold maker was made for admission to manage fluid overload and heart failure symptoms.
- Risk: Prescription medication management included administration of furosemide for the treatment of fluid overload.
DIAGNOSIS
Heart failure exacerbation (ICD-10 code: I50.9)
Past History
Past History
ED Past Medical History: HTN, Hypercholesterolemia and Other (Hyperthyroidism, atrial fibrillation); Negative CAD
ED Past Surgical History: Orthopedic
Social History
Tobacco: Non-smoker
Living: with family
Phy Exam
Physical Exam
Physical Exam:
See HPI
Scores
Heart Failure Risk
Heart Failure Risk Score: Not Applicable
Course
Orders/Labs/Results
Orders:
Orders
08/20/25 16:58
EKG [Electrocardiogram (*1)] Urgent
Reason for Study: Shortness of Breath
08/20/25 16:59
EKG- Treatment ONCE
08/20/25 17:07
BNP [NT-proBNP] Urgent
Complete Blood Count/With Diff Urgent
Comprehensive Metabolic Panel Urgent
08/20/25 17:08
COVID-19 Antigen Urgent
Source: Nasal Swab
Influenza A+B Rapid Molecular Urgent
PHU Source: Nasal Swab
Specimen Description:
08/20/25 18:00
Furosemide [Lasix] 40 mg IV NOW STA
CR Chest Portable - 1 View Urgent
Comment:
Reason For Exam: sob
Reason Study Needs to be Portable: Patient Unstable
08/20/25 19:41
HYDROmorphone [Dilaudid] 1 mg IV NOW STA
Ondansetron Injectable [Zofran] 4 mg IV NOW STA
Abnormal Lab Results
08/20/25
17:07
WBC 13.3 H 10^3/uL
(4.8-10.8)
RBC 3.79 L 10^6/uL
(4.20-5.40)
Hgb 11.9 L g/dL
(12.0-16.0)
Hct 35.9 L %
(37.0-47.0)
MCH 31.4 H pg
(27.0-31.0)
RDW 16.8 H %
(11.5-14.5)
Abs Immat Gran (auto) 0.1 H 10^3/uL
(0-0.05)
Absolute Neuts (auto) 10.9 H 10^3/uL
(1.4-6.5)
Absolute Lymphs (auto) 0.8 L 10^3/uL
(1.2-3.4)
Absolute Monos (auto) 1.3 H 10^3/uL
(0.1-0.6)
Immature Gran % 0.7 H %
(0-0.5)
Neutrophils % 82.1 H %
(42.2-75.2)
Lymphocytes % 6.2 L %
(20.5-51.1)
Monocytes % 9.7 H %
(1.7-9.3)
Sodium 132 L mmol/L
(135-145)
Chloride 92 L mmol/L
(98-107)
Carbon Dioxide 32 H mmol/L
(22-30)
Glucose 128 H mg/dl
(70-99)
Total Bilirubin 1.9 H mg/dl
(0.2-1.3)
08/20/25 17:07
08/20/25 17:07
Vital Signs
Initial and Last Documented VS:
Initial Vital Signs
Temp Pulse Resp BP Pulse Ox
37.1 C 120 20 141/82 79
08/20/25 16:53 08/20/25 16:53 08/20/25 16:53 08/20/25 16:53 08/20/25 16:53
Last Documented Vital Signs
Temp Pulse Resp BP Pulse Ox
37.1 C 107 23 136/99 96
08/20/25 16:53 08/20/25 19:15 08/20/25 19:15 08/20/25 19:00 08/20/25 19:15
*Pulse Oximetry
SaO2: 94
Nasal Cannula flow liters per minute: 4
Oxygen Mode of Delivery: Room air
Patient hypoxic: yes
*Critical Care Note
Total Time (30-74mins, 75-104mins- exclusive of procedures): Not Applicable
ED Attending Note
-
Portions of this chart may have been created with voice recognition software.� Occasional wrong word or��sound alike� substitutions may have occurred due to the inherent limitations of voice recognition software.
Discharge Plan
Departure
Patient Disposition: Admit
Date of Disposition: 08/20/25
Time of Disposition: 19:34
Presentation/result/management discussed w/ accepting MD/DO: Hospitalist
Discharge Problem:
Heart failure
Prescriptions:
No Action
multivitamin [Daily Multiple] 1 EACH tablet
1 tab PO DAILY
atorvastatin 10 MG tablet
10 mg PO DAILY
diltiazem HCl 240 MG capsule,extended release 24hr
240 mg PO BID
Patient Comments:
with 120mg tab
Eliquis 5 MG tablet
5 mg PO BID
thiamine HCl (vitamin B1) 100 MG tablet
100 mg PO BID Qty: 60 0RF
pantoprazole 40 mg Tablet,Delayed Release (Dr/Ec)
40 mg PO DAILY
furosemide 40 mg Tablet
40 mg PO Q48H Qty: 30 0RF
metoprolol succinate 100 mg Tablet Extended Release 24 Hr
100 mg PO DAILY Qty: 30 0RF
Rx Instructions:
Dose changed from 50 mg twice a day to 100 mg in the morning and 50 in the evening
metoprolol succinate 50 MG tablet extended release 24 hr
50 mg PO HS 30 Days Qty: 90 0RF
Rx Instructions:
Dose changed from 50 mg twice a day to 100 mg in the morning and 50 in the evening
Referrals:
Jerri Sanchez MD [Family Provider, Family Practice]
Interventions
Interventions:
*Risk Screen - Suicide Last Done: 08/20/25 16:53
*General Assessment Last Done: 08/20/25 16:53
*Neglect/Abuse Screening Last Done: 08/20/25 18:30
*ED COVID-19 Vaccine History Last Done: 08/20/25 16:53
*ED Influenza Vaccine History Last Done: 08/20/25 16:53
[facility] Fall Risk Assessment Tool Last Done: 08/20/25 18:31
ED- Cardiac Assessment Last Done: 08/20/25 19:04
ED- Pulmonary Assessment Last Done: 08/20/25 19:04
Discharge Date and Time
Print Language: UKRAINIAN
[2025-08-20] MEDS: LASIX 40 MG IV (18:32)
--- NOTE | 2025-08-20 20:01 | HPS.HSE ---
Family Physician
-
Family Physician: Jerri Sanchez MD
Chief Complaint
-
shortness of breath
History of Present Illness
80-year-old female past medical history of HFpEF, paroxysmal atrial fibrillation, hypertension, hypothyroidism, polymyalgia rheumatica, GERD, gastric ulcer, hiatal hernia, chronic anemia, spinal stenosis, presenting with shortness of breath, cough
low oxygen saturation and leg swelling since yesterday. She was at urgent care oxygen saturation was 72%. She has been taking her Lasix but did not take it today. Her weight has been stable. Denies fevers or chills. Denies sore throat.
She denies smoking. Drinks alcohol occasionally.
Medical History
Past Medical History
Past Medical History: Reports Other (HFpEF, paroxysmal atrial fibrillation, hypertension, hypothyroidism, polymyalgia rheumatica, GERD, gastric ulcer, hiatal hernia, chronic anemia, spinal stenosis)
Past Surgical History: Reports Other (Carpal Tunnel Release Right CHER DCCV x 2)
Social History
Tobacco: Non-smoker
Alcohol: None
Drug: None
Family History
Family History: Not pertinent
Allergies / Home Medications
Allergies reflects when Allergies were last updated in tic.
Home Medications with original date entered in tic
Allergy/Medication List:
Allergies
Allergy/AdvReac Type Severity Reaction Status Date / Time
Penicillins Allergy Rash Verified 08/20/25 16:58
Home Medications
multivitamin (Daily Multiple tablet) 1 tab PO DAILY Supplement 03/19/13
atorvastatin 10 mg tablet 10 mg PO DAILY High cholesterol 10/03/15
apixaban 5 mg tablet (Eliquis) 5 mg PO BID Blood clot prevention/tx 05/23/20
diltiazem HCl 240 mg capsule,extended release 24 hr 240 mg PO BID Blood pressure 05/23/20
thiamine HCl (vitamin B1) 100 mg tablet 100 mg PO BID #60 tabs 05/29/20
pantoprazole 40 mg tablet,delayed release 40 mg PO DAILY 08/31/24
furosemide 40 mg tablet 40 mg PO Q48H #30 tabs 09/01/24
metoprolol succinate 100 mg tablet,extended release 24 hr 100 mg PO DAILY #30 tabs 09/01/24
metoprolol succinate 50 mg tablet,extended release 24 hr 50 mg PO HS 30 days #90 tabs 09/01/24
Review of Systems
-
History Source: Patient
A 12 point ROS was completed and negative except as noted: Yes
Constitutional: Reports No Symptoms
EENT: Reports No Symptoms
Respiratory: Reports See HPI
Cardiac: Reports See HPI
Abdomen/GI: Reports No Symptoms
: Reports No Symptoms
Musculoskeletal: Reports No Symptoms
Skin: Reports No Symptoms
Neurological: Reports No Symptoms
Endocrine: Reports No Symptoms
Hematologic/Lymphatic: Reports No Symptoms
Psych: Reports No Symptoms
Physical Exam
Vital Signs
Vital Signs
Temp Pulse Resp BP Pulse Ox
98.8 F 107 23 136/99 96
08/20/25 16:53 08/20/25 19:15 08/20/25 19:15 08/20/25 19:00 08/20/25 19:15
Physical Exam
General: Well Developed, Well Nourished and No Apparent Distress
HEENT: NormoCephalic, Moist mucous membranes and Atraumatic
Respiratory: Clear
Cardiac: S1/S2, Regular Rhythm and Peripheral Edema; No Murmur or Rub
GI: Soft, Non Tender, Non Distended and Normal Bowel Sounds; No Organomegaly
Rectal: Deferred by Provider
Musculoskeletal: No Clubbing, No Cyanosis and No Edema
Skin: No Rash
Neuro: Nonfocal/grossly intact
Laboratory Results
-
08/20/25 17:07
08/20/25 17:07
Laboratory Results
Total Bilirubin 1.9 mg/dl (0.2-1.3) H 08/20/25 17:07
AST 22 U/L (14-36) 08/20/25 17:07
ALT 12 U/L (0-35) 08/20/25 17:07
Alkaline Phosphatase 89 U/L (38-126) 08/20/25 17:07
Data Reviewed
-
Lab Data: Labs Reviewed by me
Old Records: Reviewed
Impression/Plan
-
IMPRESSION:
PLAN:
# Acute HFpEF exacerbation
- Cardiac BNP 3500 from 1500
- Check I's and O's, daily weight
- 40 IV Lasix daily
-Continue dapagliflozin
- Cardiology consulted
Paroxysmal atrial fibrillation
- Continue Eliquis
- Continue metoprolol
- Continue Cardizem
Essential hypertension
Hypothyroidism
Polymyalgia rheumatica
GERD/gastric ulcer/hiatal hernia
Chronic anemia
- Hemoglobin stable
Spinal stenosis
Anxiety/depression
- Continue alprazolam
DNR/DNI
DVT prophylaxis�Eliquis
Cardiac diet
--- NOTE | 2025-08-20 21:30 | PTCARENOTE ---
received pt from ed. pt ambulated from stretcher to bed with rolling walker. pt A&O x 3. pt on 5 L O2 93%. pt offers no current complaints and appears comfortable in bed. call taylor within reach. plan of care ongoing.
[2025-08-20] MEDS: ELIQUIS 2.5 MG PO (22:22)
[2025-08-20] MEDS: TOPROL XL 50 MG PO (22:22)
[2025-08-20] MEDS: CARDIZEM CD 240 MG PO (22:22)
[2025-08-21 03:37] VITALS: BP 124/68
[2025-08-21 06:00] VITALS: BMI 26.4
[2025-08-21 07:25] VITALS: BP 145/73
[2025-08-21 07:54] LABS: Hematocrit 33.5 % (37.0-47.0); Hemoglobin 11.1 g/dL (12.0-16.0); Mean Corp Hgb Conc. 33.1 g/dL (33.0-37.0); Mean Corpuscular Volume 96.3 fL (81.0-99.0); Nucleated Red Blood Cells % 0 %; Platelet Count 305 10^3/uL (130-400); Red Cell Dist. Width 16.6 % (11.5-14.5)
[2025-08-21 08:43] LABS: ALT (SGPT) < 10 U/L (0-35); AST (SGOT) 20 U/L (14-36); Albumin 4.0 g/dl (3.5-5.0); Alkaline Phosphatase 72 U/L (38-126); Blood Urea Nitrogen 9 mg/dl (7-17); Calcium 8.6 mg/dl (8.4-10.2); Chloride 91 mmol/L (98-107); Estimated Creatinine Clearance 51 ml/min; Glucose 89 mg/dl (70-99); Potassium 3.5 mmol/L (3.5-5.1); Sodium 132 mmol/L (135-145); Total Protein 6.5 g/dl (6.3-8.2); eGFR > 60.00
[2025-08-21] MEDS: PROTONIX 40 MG PO (09:09)
[2025-08-21] MEDS: TOPROL XL 50 MG PO ×3 (09:09→21:57)
[2025-08-21] MEDS: ELIQUIS 2.5 MG PO ×2 (09:10→10:20)
[2025-08-21] MEDS: LIPITOR 10 MG PO (09:10)
[2025-08-21] MEDS: LASIX 40 MG IV ×2 (09:10→15:14)
[2025-08-21] MEDS: CARDIZEM CD 240 MG PO ×2 (09:10→19:34)
[2025-08-21 09:42] LABS: Carbon Dioxide 35 mmol/L (22-30)
--- NOTE | 2025-08-21 09:50 | CON.CAR ---
Addendum entered and electronically signed by Jaziel Carney MD 08/21/25 13:05:
I saw and evaluated the patient, and I provided the substantive portion of the medical decision making.
I reviewed and agree with the note by YONATAN Medrano and it accurately reflects our care.
I personally performed the medical decision making of the this encounter and my assessment and plan is below:
80-year-old female followed by Dr. Kate with a past medical history of permanent atrial fibrillation on Eliquis, chronic HFpEF, mild , right bundle branch block, PAD/subclavian stenosis, and SHANNAN who presents for evaluation of progressive dyspnea
over several months with weight gain despite poor appetite. She has been wheezing at home per her report. When she presented for evaluation she was hypoxic
On exam, she has diffuse expiratory wheezes, regular rate and rhythm normal S1-S2, abdomen is soft nontender nondistended no hepatosplenomegaly.
EKG showed A-fib with RBBB, chest x-ray showed a right small pleural effusion with possible right lower lobe infiltrate
Assessment:
Acute hypoxic respiratory failure: On 5 L nasal cannula. Certainly a component of CHF. May be a pulmonary component with undiagnosed COPD?--Care per medicine
Acute heart failure with preserved ejection fraction: Feeling better with IV diuresis. She will continue with this and intensive monitoring. We will add spironolactone.
Change SGLT2 to costly. Will consider ARB/Entresto based on blood pressure moving forward.
Permanent atrial fibrillation on Eliquis and diltiazem, continue for now.
Subclavian stenosis: On the left, check blood pressure in the right only.
Will follow
Original Note:
Consultation
Consultation Request
Date/Time Consultation Requested: 08/20/251
Date/Time Consultation Performed: 08/21/25 0950
Requesting Provider: Dr. Brown
Performing Provider: Marylou TAM for Dr. Meng
Reason for Consultation: CHF
Medical History
-
Chief Complaint: SOB
History of Present Illness:
80 y/o female with permanent AFIB on Eliquis, chronic HFpEF, mild , PAD/subclavian stenosis, HTN, HLD, RBBB, and SHANNAN who is here for evaluation. She has had SOB for the past several months, and has been continuing to worsen. She also noted
increased LE edema, orthopnea, cough (productive - clear), and PND. She thinks she has gained 7 lbs overall. She went to the urgent care and reportedly O2 sat was 72%. She was sent to the hospital and is on O2 by ND and is being diuresed for CHF. To
assessment, she has diminished lung sounds and wheezing throughout. She denied any hx of lung disease, but per OP chart she has COPD and hx lung nodule.
Past Medical History
Past Medical History: Arrhythmias, CHF, COPD, HTN and Hypercholesterolemia
Social History
Tobacco: Former Smoker (30 years ago)
Family History
Family History: Reviewed & Not Pertinent
Allergies / Home Medications
Allergy/AdvReac Type Severity Reaction Status Date / Time
Penicillins Allergy Rash Verified 08/20/25 16:58
�Medication �Instructions �Recorded �Confirmed �Type
atorvastatin 10 mg tablet 10 mg PO DAILY High cholesterol 10/03/15 08/20/25 History
apixaban 5 mg tablet (Eliquis) 2.5 mg PO BID Blood clot 05/23/20 08/20/25 History
prevention/tx
diltiazem HCl 240 mg 240 mg PO BID Blood pressure 05/23/20 08/20/25 History
capsule,extended release 24 hr
pantoprazole 40 mg tablet,delayed 40 mg PO DAILY 08/31/24 08/20/25 History
release
metoprolol succinate 50 mg 50 mg PO HS 30 days #90 tabs 09/01/24 08/20/25 Rx
tablet,extended release 24 hr
furosemide 40 mg tablet 40 mg PO DAILY 08/20/25 08/20/25 History
metoprolol succinate 100 mg 50 mg PO DAILY 08/20/25 08/20/25 History
tablet,extended release 24 hr
Review of Systems
-
History Source: Patient
All other systems: Negative unless noted
Constitutional: Weight Gain
Respiratory: Cough and Trouble Breathing
Musculoskeletal: Edema
Physical Exam
Vital Signs
Temp Pulse Resp BP Pulse Ox
98.2 F 84 18 145/73 92
08/21/25 07:25 08/21/25 09:09 08/21/25 07:25 08/21/25 09:10 08/21/25 09:15
Lab Results
08/21/25 06:38
08/21/25 06:38
Sgi-L-Idrxlzhopee Pept 3510 pg/ml 08/20/25 17:07
Physical Exam
General: Well Developed, Well Nourished and No Apparent Distress
HEENT: Normocephalic and Anicteric
Respiratory: Wheezes and Other (diminished lung sounds; on O2 by NC)
Cardiac: Irregular Rhythm and Peripheral Edema (mild BLE edema)
Musculoskeletal: Edema (mild BLE edema)
Skin: Warm and Dry
Neuro: AO x 3
Psych: Calm
Impression / Plan
-
Rfkvt-eu-yongbdi HFpEF:
-reports orthopnea, PND, weight gain, LE edema. BNP elevated 3510.
-severe in that she is requiring hospitalization and IV diuresis
-Echo 05/24/25: Normal left ventricular size, and systolic function. Estimated LVEF 65-70%. Mild aortic stenosis. Mild aortic regurgitation. Mild/moderate tricuspid regurgitation. Estimated pulmonary artery pressure of 56 mmHg. Severely elevated
PASP. 4. Compared to 08/31/24: tricuspid regurgitation has progressed from mild to mild/moderate, and PASP has increased from 19 to 56 mmHg.
-lasix increased as OP, but she doesn't feel that she was urinating more with this
-OP visit 06/05/25 weight 129 lbs and currently 135 lbs.
-agree with IV lasix, which requires intensive monitoring- I will change to BID dosing. She reports diuresis and improvement in LE edema on current dosing.
-will give some K+ today
-will c/s CM for SGLT2I
-wean O2 as tolerated per protocol
COPD/hx pulmonary nodule:
-patient denied lung disease for me, but this is noted in OP PCP chart
-she is wheezing to assessment and I suspect this could be contributing; defer management to primary team
Permanent AFIB:
-rate-controlled on current meds, monitor telemetry
-continue Eliquis- I increased dose back to 5 mg PO BID based on weight (weight >60 kg, age 80, creatinine <1.5), but monitor closely with diuresis to ensure she remains on correct dosing
HTN:
-stable on meds, monitor
Hyponatremia:
-monitor with diuresis
Data Reviewed
-
EKG: Tracing Personally Visualized and interpreted (AFIB, IC RBBB)
Radiology: Report Reviewed by me (CXR: Large hiatal hernia obscures the left lower chest. Small patchy opacity in the right lower lung which could represent atelectasis and/for pneumonia with small right pleural effusion.)
Medical Tests (Nuc Med, Echo etc): Report Reviewed by me (echo as noted)
Labs: Labs Reviewed by me
[2025-08-21] MEDS: KCL 20 MEQ PO (10:21)
[2025-08-21 10:50] VITALS: BMI 26.4
[2025-08-21 11:15] VITALS: BP 130/58
--- NOTE | 2025-08-21 12:36 | W.PN.HOSP.TC ---
Today's Communication/Plan
-
Monitor vital signs see plan
Wean oxygen as tolerated
Continue with IV diuresis
Increase Eliquis to 5 mg twice daily
Check procalcitonin
Trial of DuoNeb
Assessment / Plan
Assessment / Plan
General: Well Developed, Well Nourished and No Apparent Distress
HEENT: NormoCephalic, Moist mucous membranes and Atraumatic
Respiratory: Clear,+ wheezing
Cardiac: S1/S2, Regular Rhythm and Peripheral Edema
GI: Soft, Non Tender, Non Distended and Normal Bowel Sounds
Musculoskeletal:No Edema
Neuro: Nonfocal/grossly intact
Acute on chronic HFpEF exacerbation
Acute hypoxic respiratory insufficiency likely secondary to above, wean oxygen as tolerated
- Check I's and O's, daily weight
Continue with IV diuresis
Cardiology following
-Continue dapagliflozin
- Cardiology consulted
Paroxysmal atrial fibrillation
- Continue Eliquis
- Continue metoprolol
- Continue Cardizem
History of pulmonary nodule, suspected COPD however patient denies any lung disease
History of smoking
Currently wheezing
Trial of DuoNebs
Chest x-ray with likely atelectasis. Check Pro-Spencer given infiltrate
Hyponatremia
Monitor
Essential hypertension
Hypothyroidism
Polymyalgia rheumatica
GERD/gastric ulcer/hiatal hernia
Chronic anemia
- Hemoglobin stable
Spinal stenosis
Anxiety/depression
DNR/DNI
DVT prophylaxis�Eliquis
I spent a total of 52 minutes with the patient or on the floor. More than 50% of this time involved counseling and coordination of care.
Anticipated Discharge: > 48 hours
Subjective/Interval History
-
Date of Service: August 21, 2025
Does feel short of breath
Objective Data
-
Labs:
Laboratory Results
08/21/25
06:38
WBC 7.3
Hgb 11.1 L
Hct 33.5 L
Plt Count 305
Sodium 132 L
Potassium 3.5
Chloride 91 L
Carbon Dioxide 35 H
BUN 9
Creatinine 0.7
Glucose 89
Calcium 8.6
Total Bilirubin 1.1
AST 20
ALT < 10
Alkaline Phosphatase 72
Vital Signs:
Vital Signs
Temp Pulse Resp BP Pulse Ox
98.5 F 67 18 130/58 96
08/21/25 11:15 08/21/25 11:15 08/21/25 11:15 08/21/25 11:15 08/21/25 11:15
I&O
08/20/25 08/21/25 08/22/25
06:59 06:59 06:59
Intake Total 240 / 240
Output Total 400 / 400
Balance -160 / -160
[2025-08-21] MEDS: DUONEB INH (12:44)
[2025-08-21 13:37] LABS: Procalcitonin 0.08 ng/ml (0.0-0.25)
[2025-08-21 15:08] VITALS: BP 127/63
[2025-08-21] MEDS: ALDACTONE 12.5 MG PO (15:14)
[2025-08-21] MEDS: DUONEB 3 ML INH ×2 (15:30→19:15)
--- NOTE | 2025-08-21 16:07 | PN.CDI ---
CDI
- -
CDI:
Physician Documentation Request
Admit Date: 08/20/25 20:25
Dear Doctor Kenneth,
Please review the following and provide your response in the progress notes.
Clinical Indicators:
Pt admitted with CHFpEF
Documented pr H&P and progress note 08/21, ' Paroxysmal atrial fibrillation- Continue Eliquis Continue metoprolol Continue Cardizem...'
Cardiology consult, ' Permanent AFIB:rate-controlled on current meds, monitor telemetrycontinue Eliquis- I increased dose back to 5 mg PO BID based on weight (weight >60 kg, age 80, creatinine <1.5), but monitor closely with diuresis to ensure she
remains on correct dosing...'
If possible, please provide further specificity regarding atrial fibrillation, such as:
Permanent atrial fibrillation - when a decision has been made to accept the presence of AF and there is no further attempt to restore or maintain sinus rhythm
Paroxysmal atrial fibrillation - terminates spontaneously or with intervention within 7 days of onset
Other - please specify
Use of terms such as suspected, likely, concern for, or probable (associated with a specific diagnosis that is being evaluated, monitored, or treated as if it exists) are acceptable and can be coded in the inpatient setting, when documented at the
time of discharge.
Thank you,
Delia Guzman RN
CDI Specialist
[place] [facility]
Please use your independent medical judgment in providing your response.
--- NOTE | 2025-08-21 16:11 | PN.CDI ---
CDI
- -
CDI:
Physician Documentation Request
Admit Date: 08/20/25 20:25
Dear Doctor Kenneth,
Please review the following and provide your response in the progress notes.
Clinical Indicators:
Pt admitted with CHFpEF
Documented per ED, ' . The patient was evaluated at an urgent care center where her oxygen saturation level was noted to be 72%...sats are 96% on 6 L...'
Cardiology consult, ' Acute hypoxic respiratory failure: On 5 L nasal cannula. Certainly a component of CHF. May be a pulmonary component with undiagnosed COPD?--Care per medicine...Respiratory: Wheezes and Other (diminished lung sounds; on O2 by
NC)...'
Progress note 08/21, ' Acute hypoxic respiratory insufficiency likely secondary to above, wean oxygen as tolerated...'
Selected Entries
08/20/25
16:53 08/20/25
16:54 08/20/25
18:00
Pulse 120
Resp Rate 26
SaO2 79
Nasal Cannula flow liters per minute 4
08/20/25
18:15 08/20/25
18:45 08/20/25
19:45
Pulse 122 115
Resp Rate 27 27
08/20/25
20:45 08/20/25
21:30 08/20/25
22:00
Pulse 118
Resp Rate 25
Nasal Cannula flow liters per minute 5 5
08/21/25
11:15 08/21/25
15:36
Nasal Cannula flow liters per minute 5 4
Due to potentially conflicting documentation please clarify the respiratory diagnosis :
Acute Hypoxic Respiratory failure
Hypoxia (Only )
Other ( please specify)
Additional information for Respiratory Failure:
Recognized criteria for Respiratory Failure (Source: Anibal De Dios 2018August 08.
Documentation tips: Acute Respiratory Failure, The Hospitalist.)
ABGs: (1 or more) Symptoms Please indicate type if known
1. p)2 <60 or RA SPO2 <91% on RA 1. Tachypnea, SOB, dyspnea Hypoxic
2. pCO2 >45 and pH <7.35 2. Use of accessory muscles Hypercapnic
3. pO2 decrease of pCO2 increase by 3. Pallor or cyanosis Hypoxic and Hypercapnic
10 mmHg from baseline if known 4. Anxiety or restlessness Unable to determine
4. P/F Ratio (pO2/FiO2)less than 300 5. Unable to speak in full sentences
Use of terms such as suspected, likely, concern for, or probable (associated with a specific diagnosis that is being evaluated, monitored, or treated as if it exists) are acceptable and can be coded in the inpatient setting, when documented at the
time of discharge.
Thank you,
Delia Guzman RN
CDI Specialist
[place] [facility]
Please use your independent medical judgment in providing your response.
--- NOTE | 2025-08-21 17:03 | CM ---
CM consults completed- The cost for Jardiance 10 mg daily and Farxiga 10mg daily for both 30 days and 90 days is $36.48
--- NOTE | 2025-08-21 17:19 | CM ---
Met with pt bedside and spoke with her nurse. IA completed, IMM given and placed on chart. Lives alone in a bi-level ranch home with 4 +4 steps at the entrance. Railing is in place. Independent in ADLs and IADL. Has home care administrator from [facility] which
does split leather mosser, no personal care. No insecurities identified.
Has hx of SNF after hip surgery
No hx of home O2 although pt is wondering if she needs home O2
Has hx of VN many times and does not want to have them back after this hospitalization
DME: RW when out of the house, SPC when in the house, grab bars in BR, shower chair and transport chair
Plan: home with no needs
[2025-08-21 19:27] VITALS: BP 141/77
[2025-08-21] MEDS: ELIQUIS 5 MG PO (19:34)
[2025-08-21 19:40] VITALS: BMI 26.4
[2025-08-21] MEDS: TYLENOL 650 MG PO (21:50)
[2025-08-21 23:08] VITALS: BP 122/61
[2025-08-22] VITALS (8 sets, daily range): BP systolic 109–134; BP diastolic 51–79; PULSE 70; O2SAT 91; BMI 26.2
[2025-08-22] MEDS: TYLENOL 650 MG PO ×2 (06:23→20:36)
[2025-08-22] MEDS: DUONEB 3 ML INH ×4 (07:46→19:08)
[2025-08-22] MEDS: LIPITOR 10 MG PO (08:18)
[2025-08-22] MEDS: LASIX 40 MG IV ×2 (08:18→15:31)
[2025-08-22] MEDS: PROTONIX 40 MG PO (08:19)
[2025-08-22] MEDS: CARDIZEM CD 240 MG PO ×2 (08:19→20:36)
[2025-08-22] MEDS: ALDACTONE 12.5 MG PO (08:19)
[2025-08-22] MEDS: TOPROL XL 50 MG PO ×2 (08:19→21:46)
[2025-08-22] MEDS: ELIQUIS 5 MG PO ×2 (08:20→20:36)
[2025-08-22 08:26] LABS: Blood Urea Nitrogen 10 mg/dl (7-17); Calcium 9.0 mg/dl (8.4-10.2); Carbon Dioxide 39 mmol/L (22-30); Chloride 91 mmol/L (98-107); Estimated Creatinine Clearance 51 ml/min; Glucose 92 mg/dl (70-99); Potassium 3.7 mmol/L (3.5-5.1); Sodium 133 mmol/L (135-145); eGFR > 60.00
[2025-08-22 08:27] LABS: Hematocrit 35.0 % (37.0-47.0); Hemoglobin 11.4 g/dL (12.0-16.0); Mean Corp Hgb Conc. 32.6 g/dL (33.0-37.0); Mean Corpuscular Volume 97.8 fL (81.0-99.0); Nucleated Red Blood Cells % 0 %; Platelet Count 330 10^3/uL (130-400); Red Cell Dist. Width 16.4 % (11.5-14.5)
--- NOTE | 2025-08-22 08:58 | W.PN.CD ---
Today's Communication / Plan
-
continue lasix 40mg IV bid, aldactone 12.5mg daily
add Farxiga 10mg daily
Impression / Plan
-
Blxxl-pm-iszrlrn HFpEF:
-reports orthopnea, PND, weight gain, LE edema. BNP elevated 3510.
-severe in that she is requiring hospitalization and IV diuresis, with close monitoring of labs/tele
-Echo 05/24/25: Normal left ventricular size, and systolic function. Estimated LVEF 65-70%. Mild aortic stenosis. Mild aortic regurgitation. Mild/moderate tricuspid regurgitation. Estimated pulmonary artery pressure of 56 mmHg. Severely elevated
PASP. 4. Compared to 08/31/24: tricuspid regurgitation has progressed from mild to mild/moderate, and PASP has increased from 19 to 56 mmHg.
-lasix increased as OP, but she doesn't feel that she was urinating more with this
-OP visit 06/05/25 weight 129 lbs and currently 134 lbs.
-continue lasix 40mg IV bid, aldactone 12.5mg daily
-add Farxiga 10mg daily
COPD/hx pulmonary nodule:
-patient denied lung disease for me, but this is noted in OP PCP chart
-she is wheezing to assessment and I suspect this could be contributing; defer management to primary team
Permanent AFIB:
-rate-controlled on current meds, monitor telemetry
-continue Eliquis- I increased dose back to 5 mg PO BID based on weight (weight >60 kg, age 80, creatinine <1.5), but monitor closely with diuresis to ensure she remains on correct dosing
HTN:
-stable on meds, monitor
Hyponatremia:
-monitor with diuresis
Physical Exam
Vital Signs/Labs
Vital Signs
Temp Pulse Resp BP Pulse Ox
98.1 F 79 18 134/71 99
08/22/25 08:28 08/22/25 08:28 08/22/25 08:28 08/22/25 08:28 08/22/25 08:28
08/21/25 08/22/25 08/23/25
06:59 06:59 06:59
Actual Weight 61.348 kg 60.895 kg
08/22/25 06:59
08/22/25 06:59
08/20/25
17:07
Vin-I-Pfsgxdeuxnm Pept 3510
Physical Exam
Constitutional: No acute distress and Comfortable
EENT: Moist mucous membranes
Cardiovascular: Diastolic murmur absent, Rhythm/rate is irregular, Pedal edema present and JVD present
Respiratory: Respiratory effort normal and Wheeze Present
Neuro/Psych: AO x 3
Data Reviewed
-
Date of Service: August 22, 2025
EKG: Other (Tele: A fib 70s)
Labs: Labs Reviewed by me
[2025-08-22] MEDS: FARXIGA 10 MG PO (11:41)
--- NOTE | 2025-08-22 12:29 | W.PN.HOSP.TC ---
Today's Communication/Plan
-
Monitor vital signs and see plan
Continue with IV diuresis
Monitor renal function
Continue with nebs for now
Wean oxygen as tolerated
Assessment / Plan
Assessment / Plan
General: Well Developed, Well Nourished and No Apparent Distress
HEENT: NormoCephalic, Moist mucous membranes and Atraumatic
Respiratory: Clear,+ wheezing
Cardiac: S1/S2, Regular Rhythm and Peripheral Edema
GI: Soft, Non Tender, Non Distended and Normal Bowel Sounds
Musculoskeletal:No Edema
Neuro: Nonfocal/grossly intact
Acute on chronic HFpEF exacerbation
Acute hypoxic respiratory failure likely secondary to above, wean oxygen as tolerated
- Check I's and O's, daily weight
Continue with IV diuresis
Cardiology following
-Continue dapagliflozin
- Cardiology following. Added spironolactone
Permanent atrial fibrillation
- Continue Eliquis
- Continue metoprolol
- Continue Cardizem
History of pulmonary nodule, suspected COPD however patient denies any lung disease
History of smoking
Trial of DuoNebs; unclear if these helped him. Per patient she followed up with Dr. Garza outpatient and she was told that she does not have obstructive lung disease. Will continue to closely monitor.
Chest x-ray with likely atelectasis. Pro-Spencer neg
Hyponatremia
Monitor
Essential hypertension
Hypothyroidism
Polymyalgia rheumatica
GERD/gastric ulcer/hiatal hernia
Chronic anemia
- Hemoglobin stable
Spinal stenosis
Anxiety/depression
DNR/DNI
DVT prophylaxis�Eliquis
I spent a total of 51 minutes with the patient or on the floor. More than 50% of this time involved counseling and coordination of care.
Anticipated Discharge: Within 24 hours
Subjective/Interval History
-
Date of Service: August 22, 2025
Feeling better
Objective Data
-
Labs:
Laboratory Results
08/22/25
06:59
WBC 8.2
Hgb 11.4 L
Hct 35.0 L
Plt Count 330
Sodium 133 L
Potassium 3.7
Chloride 91 L
Carbon Dioxide 39 H
BUN 10
Creatinine 0.7
Glucose 92
Calcium 9.0
Vital Signs:
Vital Signs
Temp Pulse Resp BP Pulse Ox
98.1 F 57 18 116/57 99
08/22/25 11:32 08/22/25 11:32 08/22/25 11:32 08/22/25 11:32 08/22/25 11:32
I&O
08/21/25 08/22/25 08/23/25
06:59 06:59 06:59
Intake Total 240 / 240 720 / 720
Output Total 400 / 400 1300 / 1300
Balance -160 / -160 -580 / -580
[2025-08-23] VITALS (7 sets, daily range): BP systolic 104–138; BP diastolic 56–79; PULSE 65; O2SAT 95; BMI 26.0
[2025-08-23] MEDS: DUONEB 3 ML INH ×4 (07:49→19:50)
[2025-08-23] MEDS: TOPROL XL 50 MG PO ×2 (08:11→20:10)
[2025-08-23] MEDS: ELIQUIS 5 MG PO ×2 (08:11→20:10)
[2025-08-23] MEDS: LIPITOR 10 MG PO (08:11)
[2025-08-23] MEDS: PROTONIX 40 MG PO (08:11)
[2025-08-23] MEDS: ALDACTONE 12.5 MG PO (08:11)
[2025-08-23] MEDS: FARXIGA 10 MG PO (08:11)
[2025-08-23] MEDS: CARDIZEM CD 240 MG PO ×2 (08:11→20:10)
[2025-08-23] MEDS: LASIX 40 MG IV ×2 (08:12→15:33)
[2025-08-23] MEDS: TYLENOL 650 MG PO ×2 (08:12→20:11)
--- NOTE | 2025-08-23 08:35 | W.PN.CD ---
Today's Communication / Plan
-
conitnue IV diuresis with intensive monitoring.
Impression / Plan
-
Fakyu-ov-fksvqec HFpEF:
-reports orthopnea, PND, weight gain, LE edema. BNP elevated 3510.
-severe in that she is requiring hospitalization and IV diuresis, with close monitoring of labs/tele
-Echo 05/24/25: Normal left ventricular size, and systolic function. Estimated LVEF 65-70%. Mild aortic stenosis. Mild aortic regurgitation. Mild/moderate tricuspid regurgitation. Estimated pulmonary artery pressure of 56 mmHg. Severely elevated
PASP. 4. Compared to 08/31/24: tricuspid regurgitation has progressed from mild to mild/moderate, and PASP has increased from 19 to 56 mmHg.
-lasix increased as OP, but she doesn't feel that she was urinating more with this
-OP visit 06/05/25 weight 129 lbs and currently 133lbs.
-continue lasix 40mg IV bid, aldactone 12.5mg daily
-Farxiga 10mg daily added
COPD/hx pulmonary nodule:
-patient denied lung disease for me, but this is noted in OP PCP chart
-she is wheezing to assessment and I suspect this could be contributing; no real improvement in bronchospasm with diuresis. ? more significant pulmonary issue than we appreciate.
-defer management to primary team
Permanent AFIB:
-rate-controlled on current meds, monitor telemetry
-continue Eliquis- I increased dose back to 5 mg PO BID based on weight (weight >60 kg, age 80, creatinine <1.5), but monitor closely with diuresis to ensure she remains on correct dosing
HTN:
-stable on meds, monitor
Hyponatremia:
-monitor with diuresis
Physical Exam
Vital Signs/Labs
Vital Signs
Temp Pulse Resp BP Pulse Ox
97.3 F 82 18 138/79 97
08/23/25 08:01 08/23/25 08:01 08/23/25 08:01 08/23/25 08:01 08/23/25 08:01
08/22/25 08/23/25 08/24/25
06:59 06:59 06:59
Actual Weight 134 lb 4 oz 133 lb 2 oz
08/20/25
17:07
Myd-P-Yewivtllaqc Pept 3510
Physical Exam
Constitutional: No acute distress
Cardiovascular: Pedal edema is absent, JVD pressure is normal, Systolic murmur absent and Rhythm/rate is irregular
Respiratory: Respiratory effort normal, Lungs clear to auscul. and Wheeze Present
GI: Soft
Neuro/Psych: AO x 3
Data Reviewed
-
Date of Service: August 23, 2025
EKG: Other (rate control fib)
[2025-08-23 09:32] LABS: Hematocrit 35.3 % (37.0-47.0); Hemoglobin 11.5 g/dL (12.0-16.0); Mean Corp Hgb Conc. 32.6 g/dL (33.0-37.0); Mean Corpuscular Volume 96.2 fL (81.0-99.0); Platelet Count 332 10^3/uL (130-400); Red Cell Dist. Width 16.3 % (11.5-14.5)
[2025-08-23 09:59] LABS: Blood Urea Nitrogen 11 mg/dl (7-17); Calcium 9.2 mg/dl (8.4-10.2); Chloride 88 mmol/L (98-107); Estimated Creatinine Clearance 50 ml/min; Glucose 89 mg/dl (70-99); Potassium 4.1 mmol/L (3.5-5.1); Sodium 133 mmol/L (135-145); eGFR > 60.00
[2025-08-23 11:04] LABS: Carbon Dioxide 40 mmol/L (22-30)
[2025-08-23 11:30] LABS: Absolute Neutrophils -Man Diff 5.2 10^3/uL (1.4-6.5); Platelets Checked Yes
[2025-08-23 11:32] LABS: Macrocytosis 1+; Normal RBC Morphology No; Stomatocytes 1+; Target Cells 1+; Total Cells Counted 100
--- NOTE | 2025-08-23 12:30 | CM ---
Pt remains on oxygen NC 2 liter Pox 94%.
If not weaned at dc will need home oxygen test.
Offered VN she declined again.
Dgt Dang will drive her home.
Remains on IV diuretics.
PLAN Home declined VN
[facility] for oxygen needs
--- NOTE | 2025-08-23 12:32 | CON.PUL ---
Consultation
Consultation Request
Date/Time Consultation Requested: 08/23/2025
Date/Time Consultation Performed: 08/23/2025
Requesting Provider: Dr. Cooper
Performing Provider: Dr. Stephane Garza
Reason for Consultation: Exertional dyspnea/hypoxemic respiratory sufficiency
Medical History
-
History of Present Illness:
80-year-old woman with past medical history significant for heart failure with preserved ejection fraction, paroxysmal atrial fibrillation on anticoagulation, hypertension, hypothyroidism, PMR, GERD, gastric ulcer, chronic arthritis with mobility
issues, former smoker, spinal stenosis came with lower extremity swelling and hypoxemia on 08/20/2025.
Pulse ox was down to 72% on room air.
There is no reports of fever, increased phlegm production or hemoptysis.
Denies upper respiratory symptoms.
Former smoker quit many years ago.
Denies swallowing problems.
Patient has known paraesophageal hernia with GERD.
Past Medical History
Past Medical History: Other (See assessment and plan)
Social History
Tobacco: Former Smoker
Alcohol: None
Drug: None
Living: With Family
Family History
Family History: Reviewed & Not Pertinent
Allergies / Home Medications
Allergies
Allergy/AdvReac Type Severity Reaction Status Date / Time
Penicillins Allergy Rash Verified 08/20/25 16:58
Home Medications
�Medication �Instructions �Recorded �Confirmed �Last Taken �Type
atorvastatin 10 mg tablet 10 mg PO DAILY High cholesterol 10/03/15 08/20/25 08/20/25 08:00 History
apixaban 5 mg tablet (Eliquis) 2.5 mg PO BID Blood clot 05/23/20 08/20/25 08/20/25 08:00 History
prevention/tx
diltiazem HCl 240 mg 240 mg PO BID Blood pressure 05/23/20 08/20/25 08/20/25 08:00 History
capsule,extended release 24 hr
pantoprazole 40 mg tablet,delayed 40 mg PO DAILY 08/31/24 08/20/25 08/20/25 08:00 History
release
metoprolol succinate 50 mg 50 mg PO HS 30 days #90 tabs 09/01/24 08/20/25 08/19/25 18:00 Rx
tablet,extended release 24 hr
furosemide 40 mg tablet 40 mg PO DAILY 08/20/25 08/20/25 08/19/25 08:00 History
metoprolol succinate 100 mg 50 mg PO DAILY 08/20/25 08/20/25 08/20/25 08:00 History
tablet,extended release 24 hr
Review of Systems
-
History Source: Patient
All other systems: Negative unless noted
Vitals / Labs / Diagnostic Testing
Vital Signs
Temp Pulse Resp BP Pulse Ox
97.6 F 90 20 131/69 94
08/23/25 11:23 08/23/25 11:23 08/23/25 11:23 08/23/25 11:23 08/23/25 11:23
Lab Data
08/23/25 08:26
08/23/25 08:26
Microbiology
08/20/25 17:08 Nasal Swab Influenza Types A & B (NICK) - Final
Negative for Influenza A & B, NAAT
Negative results must be combined with clinical observations
and patient history.
Nucleic Acid Amplification test (NAAT)performed on the
[employer] platform.
Diagnostic Testing:
Physical Exam
-
HEENT: Normocephalic
Cardiovascular: S1/S2
Respiratory: Clear
GI: Non Tender
Neurology: Awake, Alert and AO x 3
Skin: Warm
General: Comfortable
Assessment
-
-
80-year-old woman with past medical history significant for heart failure with preserved ejection fraction, paroxysmal atrial fibrillation on anticoagulation, hypertension, hypothyroidism, PMR, GERD, gastric ulcer, chronic arthritis with mobility
issues, former smoker, spinal stenosis came with lower extremity swelling and hypoxemia on 08/20/2025.
Pulse ox was down to 72% on room air. proBNP was significantly elevated. Patient was diuresed with some improvement.
We were consulted on 08/23/2025 for evaluation of possible pulmonary process
Shortness of breath: Acute respiratory insufficiency.
proBNP 3000
Negative cardiac biomarker
Chest x-ray: Large paraesophageal hernia/small right pleural effusion.
Negative COVID/negative influenza
-
Conditions present prior admission:
Large paraesophageal hernia seen on 10/05/2024 in the office.
Chronic arthritis
Former smoker [id number] history quit longer than 20 years ago-CT scan without significant emphysema.
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
Mild/moderate airflow obstruction-restrictive lung defect: COPD
PFT 10/05/2024: FEV1/FVC ratio 64%/FEV1 70%/FVC 80%. TLC 65%. RV/TLC ratio 40%. DLCO 33%.
Patient tried Trelegy without success-no improvement in symptoms.
Seen by Dr. Garza-was offered nebulizer therapy but she declined at that time. Was to follow-up in January with a CAT scan but she did not follow through.
Did not qualify for pulmonary rehabilitation due to significant arthritis and mobility issues.
Abnormal CT chest 08/31/2024: Left lower lobe opacity possibly postinflammatory. Rounded atelectasis with associated bronchiectasis.
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
8.8 mm ground glass lung nodule new compared from 2019-recommended to get CAT scan in January but she did not follow through.
Heart failure with preserved ejection fraction
Atrial fibrillation-on anticoagulation.
Mild valvular disease.
Polymyalgia rheumatica
Spinal stenosis with chronic back pain
Ambulatory dysfunction
GERD/hiatal hernia.
Assessment and plan:
Previous evaluation by myself in September 2024: Multifactorial shortness of breath from underlying cardiac issues, spinal stenosis, deconditioning, chronic arthritis, paraesophageal hernia with restrictive lung disease.
At that time echocardiogram from 2023 without significant pulmonary hypertension.
-
This admission with increased proBNP in the 3000's status post diuresis
She was noted to be slightly wheezing on exam-oxygenation has improved from 3 L down to 1 L with ambulation per physical therapy assessment.
There has been some partial improvement.
-
Home oxygen assessment prior to discharge-hopefully can wean off prior to going home.
-
From the pulmonary perspective based on pulmonary function testing she has minimal airflow obstruction without hyperinflation.
Patient tried triple therapy with Trelegy in the past without success of improving shortness of breath.
She was offered to transition to nebulized therapy. AT That time she wanted to hold off.
On CAT scan only mild emphysema most prominent abnormality is her paraesophageal hernia.
-
Interestingly: She is wheezing bilaterally. Suspect on top of volume overload acute bronchitis.
Flu negative, COVID-negative.
Chronic microaspiration may be a possibility explaining her hypoxemia wheezing and shortness of breath.
We can consider continue nebulizer therapy at home at least 3 times a day together with Pulmicort twice a day as a trial with a short-term follow-up in my office.
If there is no improvement with Pulmicort, consider short course of prednisone.
Hold systemic corticosteroids for now.
She was advised to follow-up with me in January but she never followed through.
-
She has a small ground glass 8.8 mm ground glass lung nodule in the left lung which she was recommended to follow-up with a CAT scan but she never did.
This could be reassessed in the outpatient setting
-
It is interesting that her echocardiogram showed now pulmonary hypertension/right atrium dilatation which was not present back in 2023.
This is of uncertain etiology.
She is on anticoagulation for embolic disease less likely
Suspect related to volume overload from left heart disease-they will be the most common explanation.
In the outpatient setting suggest after proper diuresis repeat echocardiogram, if pulmonary hypertension continues then can consider right heart catheterization to confirm/rule out pulmonary arterial hypertension.
-
Continue oxygen supplementation at 1 L-wean off as able.
Home oxygen assessment prior dc
During our walk-in testing in September 2024 there was no oxygen requirements.
-
Continue physical therapy as tolerated
-
Aspiration precautions
Again, paraesophageal hernia likely contributing to symptoms due to compressive atelectasis on CAT scan.
-
Will follow
Short-term follow-up with Dr. Garza after discharge-

Data reviewed:
-
Chest x-ray 08/20/2025: Large hiatal hernia. Small patchy opacity in the right lower lobe atelectasis versus small pleural effusion
CT chest 08/31/2024:
Large paraesophageal hernia with compressive atelectasis
Left upper lobe ground glass lung nodule 8.8 mm. New compared from 2019
Mild emphysema.
-
Echocardiogram 05/24/2025:
Normal LVEF. Mild aortic stenosis. Mild AR. Mild to moderate TR. Pulmonary artery pressure 56 mmHg.
Normal right ventricular size and systolic function.
Right atrium is severely dilated
--- NOTE | 2025-08-23 12:33 | W.PN.HOSP.TC ---
Today's Communication/Plan
-
monitor vital signs see plan
Wean oxygen as tolerated
Pulmonary evaluation
Continue with IV diuresis
Assessment / Plan
Assessment / Plan
General: Well Developed, Well Nourished and No Apparent Distress
HEENT: NormoCephalic, Moist mucous membranes and Atraumatic
Respiratory: Clear,+ wheezing
Cardiac: S1/S2, Regular Rhythm and Peripheral Edema
GI: Soft, Non Tender, Non Distended and Normal Bowel Sounds
Musculoskeletal:No Edema
Neuro: Nonfocal/grossly intact
Acute on chronic HFpEF exacerbation
Acute hypoxic respiratory failure likely secondary to above, wean oxygen as tolerated
- Check I's and O's, daily weight
Continue with IV diuresis
Cardiology following
-Continue dapagliflozin
- Cardiology following. Added spironolactone breath
Discussed with cardiology, given some improvement with IV diuresis however still complaining of shortness of breath. Would consult pulmonary for evaluation
Permanent atrial fibrillation
- Continue Eliquis
- Continue metoprolol
- Continue Cardizem
History of pulmonary nodule, suspected COPD however patient denies any lung disease
History of smoking
Trial of DuoNebs; unclear if these helped him. Per patient she followed up with Dr. Garza outpatient and she was told that she does not have obstructive lung disease. Will continue to closely monitor.
Chest x-ray with likely atelectasis. Pro-Spencer neg
pulmonary consulted given still shortness of breath
Hyponatremia
Monitor
Essential hypertension
Hypothyroidism
Polymyalgia rheumatica
GERD/gastric ulcer/hiatal hernia
Chronic anemia
- Hemoglobin stable
Spinal stenosis
Anxiety/depression
DNR/DNI
DVT prophylaxis�Eliquis
I spent a total of 52 minutes with the patient or on the floor. More than 50% of this time involved counseling and coordination of care.
Anticipated Discharge: 24 - 48 hours
Subjective/Interval History
-
Date of Service: August 23, 2025
Continues to have shortness of breath
Objective Data
-
Labs:
Laboratory Results
08/23/25
08:26
WBC 7.9
Hgb 11.5 L
Hct 35.3 L
Plt Count 332
Sodium 133 L
Potassium 4.1
Chloride 88 L
Carbon Dioxide 40 H
BUN 11
Creatinine 0.7
Glucose 89
Calcium 9.2
Vital Signs:
Vital Signs
Temp Pulse Resp BP Pulse Ox
97.6 F 90 20 131/69 94
08/23/25 11:23 08/23/25 11:23 08/23/25 11:23 08/23/25 11:23 08/23/25 11:23
I&O
08/22/25 08/23/25 08/24/25
06:59 06:59 06:59
Intake Total 720 / 720 480 / 480
Output Total 1300 / 1300 1500 / 1500 250 / 250
Balance -580 / -580 -1020 / -1020 -250 / -250
--- NOTE | 2025-08-23 15:41 | PTCARENOTE ---
Assumed care of patient at 3pm. Trace BLLE edema. Removed 02 and placed patient on RA, as sats were 95% on 2L. Will continue to monitor o2 needs.
[2025-08-23] MEDS: PULMICORT 0.5 MG INH (19:49)
[2025-08-24] VITALS (7 sets, daily range): BP systolic 122–140; BP diastolic 67–79; PULSE 88; BMI 25.8
[2025-08-24 07:45] LABS: Hematocrit 36.7 % (37.0-47.0); Hemoglobin 12.2 g/dL (12.0-16.0); Mean Corp Hgb Conc. 33.2 g/dL (33.0-37.0); Mean Corpuscular Volume 96.3 fL (81.0-99.0); Nucleated Red Blood Cells % 0 %; Platelet Count 385 10^3/uL (130-400); Red Cell Dist. Width 15.8 % (11.5-14.5)
[2025-08-24] MEDS: PULMICORT 0.5 MG INH ×2 (07:53→20:30)
[2025-08-24] MEDS: DUONEB 3 ML INH ×5 (07:53→23:53)
[2025-08-24] MEDS: TYLENOL 650 MG PO ×2 (08:07→21:19)
[2025-08-24 08:17] LABS: Blood Urea Nitrogen 12 mg/dl (7-17); Calcium 9.4 mg/dl (8.4-10.2); Chloride 86 mmol/L (98-107); Estimated Creatinine Clearance 50 ml/min; Glucose 90 mg/dl (70-99); Potassium 4.2 mmol/L (3.5-5.1); Sodium 132 mmol/L (135-145); eGFR > 60.00
[2025-08-24] MEDS: FARXIGA 10 MG PO (08:17)
[2025-08-24] MEDS: CARDIZEM CD 240 MG PO ×2 (08:17→21:14)
--- NOTE | 2025-08-24 08:17 | PTCARENOTE ---
resp reported pt on 80% on room air this morning. pt post breathing treatment, 86% on room air. pt refused o2 at first c/o discomfort. pt educated on the oxygen, pt placed on o2 at this time. on 2L pt sating at 95-96%. pt states ,'I feel better
instantly'.
[2025-08-24] MEDS: ELIQUIS 5 MG PO (08:18)
[2025-08-24] MEDS: ALDACTONE 12.5 MG PO (08:18)
[2025-08-24] MEDS: TOPROL XL 50 MG PO ×2 (08:19→21:14)
[2025-08-24] MEDS: PROTONIX 40 MG PO (08:19)
[2025-08-24] MEDS: LIPITOR 10 MG PO (08:19)
[2025-08-24] MEDS: LASIX 40 MG IV ×2 (08:20→16:00)
[2025-08-24 08:41] LABS: Carbon Dioxide 38 mmol/L (22-30)
--- NOTE | 2025-08-24 11:37 | W.PN.CD ---
Today's Communication / Plan
-
- continue lasix 40mg IV bid, aldactone 12.5mg daily
- Eliquis 2.5 mg BID
Impression / Plan
-
Djvfx-[id number]-siwqeug HFpEF:
-reports orthopnea, PND, weight gain, LE edema. BNP elevated 3510.
-severe in that she is requiring hospitalization and IV diuresis, with close monitoring of labs/tele
-Echo 05/24/25: Normal left ventricular size, and systolic function. Estimated LVEF 65-70%. Mild aortic stenosis. Mild aortic regurgitation. Mild/moderate tricuspid regurgitation. Estimated pulmonary artery pressure of 56 mmHg. Severely elevated
PASP. 4. Compared to 08/31/24: tricuspid regurgitation has progressed from mild to mild/moderate, and PASP has increased from 19 to 56 mmHg.
-lasix increased as OP, but she doesn't feel that she was urinating more with this
-OP visit 06/05/25 weight 129 lbs and currently 133lbs.
-continue lasix 40mg IV bid, aldactone 12.5mg daily
-Net balance is > 1 L negative. still fluid overloaded and on oxygen.
-Farxiga 10mg daily added
-BUN and Cr is stable.
COPD/hx pulmonary nodule:
-patient denied lung disease for me, but this is noted in OP PCP chart
-she is wheezing to assessment and I suspect this could be contributing; no real improvement in bronchospasm with diuresis. ? more significant pulmonary issue than we appreciate.
-defer management to primary team
Permanent AFIB:
-rate-controlled on current meds, monitor telemetry
-continue Eliquis- 5 mg PO BID increased when she presented with higher weight. (weight is now 59.9 kg - < 60 kg, and age 80) Her creatinine is normal.
- Will reduce dose back to 2.5 mg BID
HTN:
-stable on meds, monitor
Hyponatremia:
-monitor with diuresis
Physical Exam
Vital Signs/Labs
Vital Signs
Temp Pulse Resp BP Pulse Ox
97.9 F 70 18 127/72 94
08/24/25 07:47 08/24/25 11:26 08/24/25 11:26 08/24/25 08:20 08/24/25 11:26
08/23/25 08/24/25 08/25/25
06:59 06:59 06:59
Actual Weight 60.384 kg 59.903 kg
08/24/25 06:36
08/24/25 06:36
08/20/25
17:07
Kfs-A-Fbecxoqzfll Pept 3510
Physical Exam
Constitutional: No acute distress and Comfortable
EENT: Anicteric and Moist mucous membranes
Cardiovascular: Pedal edema is absent, Rhythm/rate is irregular and JVD present
Respiratory: Respiratory effort normal, Crackles Present and Rhonchi Present
GI: Soft, Non tender and Normal bowel sounds
Neuro/Psych: Alert, Oriented and AO x 3
Data Reviewed
-
Date of Service: August 24, 2025
Medical Decision Making: Reviewed Test Results, Test Interpretation and Review of Case with other Provider
EKG: Tracing Personally Visualized and interpreted
Echo: Report Reviewed by me
Labs: Labs Reviewed by me
Old Records: Reviewed
--- NOTE | 2025-08-24 12:27 | W.PN.PUL3 ---
Today's Communication / Plan
-
Remains on IV diuresis for heart failure exacerbation
Will check ABG due to alkalosis, add CPAP if indicated
Wean O2 as tolerated, eventual home O2 evaluation
Will follow-up with PAP usage in 24 hours
Assessment
-
80-year-old woman with past medical history significant for heart failure with preserved ejection fraction, paroxysmal atrial fibrillation on anticoagulation, hypertension, hypothyroidism, PMR, GERD, gastric ulcer, chronic arthritis with mobility
issues, former smoker, spinal stenosis came with lower extremity swelling and hypoxemia on 08/20/2025.
Pulse ox was down to 72% on room air. proBNP was significantly elevated. Patient was diuresed with some improvement.
We were consulted on 08/23/2025 for evaluation of possible pulmonary process
Shortness of breath: Acute respiratory insufficiency.
proBNP 3000
Negative cardiac biomarker
Chest x-ray: Large paraesophageal hernia/small right pleural effusion.
Negative COVID/negative influenza
Chronic hypercarbic respiratory failure, compensated
-
Conditions present prior admission:
Large paraesophageal hernia seen on 10/05/2024 in the office.
Chronic arthritis
Former smoker [id number] history quit longer than 20 years ago-CT scan without significant emphysema.
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
Mild/moderate airflow obstruction-restrictive lung defect: COPD
PFT 10/05/2024: FEV1/FVC ratio 64%/FEV1 70%/FVC 80%. TLC 65%. RV/TLC ratio 40%. DLCO 33%.
Patient tried Trelegy without success-no improvement in symptoms.
Seen by Dr. Garza-was offered nebulizer therapy but she declined at that time. Was to follow-up in January with a CAT scan but she did not follow through.
Did not qualify for pulmonary rehabilitation due to significant arthritis and mobility issues.
Abnormal CT chest 08/31/2024: Left lower lobe opacity possibly postinflammatory. Rounded atelectasis with associated bronchiectasis.
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
8.8 mm ground glass lung nodule new compared from 2019-recommended to get CAT scan in January but she did not follow through.
Heart failure with preserved ejection fraction
Atrial fibrillation-on anticoagulation.
Mild valvular disease.
Polymyalgia rheumatica
Spinal stenosis with chronic back pain
Ambulatory dysfunction
GERD/hiatal hernia.
Plan:
Previous evaluation by myself in September 2024: Multifactorial shortness of breath from underlying cardiac issues, spinal stenosis, deconditioning, chronic arthritis, paraesophageal hernia with restrictive lung disease.
At that time echocardiogram from 2023 without significant pulmonary hypertension.
-
This admission with increased proBNP in the 2999's status post diuresis
She was noted to be slightly wheezing on exam-oxygenation has improved from 3 L down to 1 L with ambulation per physical therapy assessment.
There has been some partial improvement.
-
Home oxygen assessment prior to discharge-hopefully can wean off prior to going home.
-
From the pulmonary perspective based on pulmonary function testing she has minimal airflow obstruction without hyperinflation.
She has underlying restrictive lung disease
Never diagnosed with sleep apnea but she has metabolic alkalosis, will check ABG and trial CPAP if indicated
Patient tried triple therapy with Trelegy in the past without success of improving shortness of breath.
She was offered to transition to nebulized therapy. At that time she wanted to hold off.
On CAT scan only mild emphysema most prominent abnormality is her paraesophageal hernia.
-
Interestingly: She is wheezing bilaterally. Suspect on top of volume overload acute bronchitis.
Flu negative, COVID-negative.
Chronic microaspiration may be a possibility explaining her hypoxemia wheezing and shortness of breath.
We can consider continue nebulizer therapy at home at least 3 times a day together with Pulmicort twice a day as a trial with a short-term follow-up in my office.
If there is no improvement with Pulmicort, consider short course of prednisone.
Hold systemic corticosteroids for now.
She was advised to follow-up with me in January but she never followed through.
-
She has a small ground glass 8.8 mm ground glass lung nodule in the left lung which she was recommended to follow-up with a CAT scan but she never did.
This could be reassessed in the outpatient setting
-
It is interesting that her echocardiogram showed now pulmonary hypertension/right atrium dilatation which was not present back in 2023.
This is of uncertain etiology.
She is on anticoagulation for embolic disease less likely
Suspect related to volume overload from left heart disease-they will be the most common explanation.
In the outpatient setting suggest after proper diuresis repeat echocardiogram, if pulmonary hypertension continues then can consider right heart catheterization to confirm/rule out pulmonary arterial hypertension.
Maintain on IV diuresis
-
Continue oxygen supplementation at 1 L-wean off as able.
Home oxygen assessment prior dc
During our walk-in testing in September 2024 there was no oxygen requirements.
-
Continue physical therapy as tolerated
-
Aspiration precautions
Again, paraesophageal hernia likely contributing to symptoms due to compressive atelectasis on CAT scan.
Short-term follow-up with Dr. Garza after discharge-

Data reviewed:
-
Chest x-ray 08/20/2025: Large hiatal hernia. Small patchy opacity in the right lower lobe atelectasis versus small pleural effusion
CT chest 08/31/2024: Large paraesophageal hernia with compressive atelectasis. Left upper lobe ground glass lung nodule 8.8 mm. New compared from 2019. Mild emphysema.
-
Echocardiogram 05/24/2025: Normal LVEF. Mild aortic stenosis. Mild AR. Mild to moderate TR. Pulmonary artery pressure 56 mmHg. Normal right ventricular size and systolic function. Right atrium is severely dilated
Total time spent on this consultation/encounter __51__ minutes which includes review of history, physical exam, medications, laboratory data, personal review of imaging, extensive review of outpatient records, discussion with care team and
respiratory therapy.
Subjective Data
-
Date of Service:
Date of Service: August 24, 2025
Chief Complaint: Pulmonary Follow Up
Subjective:
Doing well, no new complaints
Maintained on IV diuresis
Objective Data
Data Reviewed
Vital Signs / I&O / Oxygen:
Vital Signs
Temp Pulse Resp BP Pulse Ox
98.4 F 81 20 122/67 94
08/24/25 11:37 08/24/25 11:37 08/24/25 11:37 08/24/25 11:37 08/24/25 11:37
Intake and Output
08/23/25 08/24/25 08/25/25
06:59 06:59 06:59
Intake Total 480 / 480 1500 / 1500
Output Total 1500 / 1500 1600 / 1600
Balance -1020 / -1020 -100 / -100
SaO2 94
Nasal Cannula flow liters per 2
minute
Physical Exam
General: Comfortable and Other (NAD)
HEENT: Normocephalic, Anicteric and Moist Mucous Membranes
Cardiovascular: S1-S2 and Regular Rhythm
Respiratory: Clear and Non-Labored Respirations
GI: Soft, Non Distended and Non Tender
Neurology: Awake, Alert, Oriented and No Motor Deficits
Skin: Warm, Dry and Good Color
Labs/Micro/Reports
Lab Data
08/24/25 06:36
08/24/25 06:36
--- NOTE | 2025-08-24 12:33 | W.PN.HOSP.TC ---
Today's Communication/Plan
-
Monitor vital signs see plan
Wean oxygen as tolerated
Still with shortness of breath, if symptoms do not improve with IV diuresis then likely will need to add prednisone
Continue with DuoNeb, Pulmicort
Cardiology and pulmonary following
Assessment / Plan
Assessment / Plan
General: Well Developed, Well Nourished and No Apparent Distress
HEENT: NormoCephalic, Moist mucous membranes and Atraumatic
Respiratory: Clear,+ wheezing
Cardiac: S1/S2, Regular Rhythm and Peripheral Edema
GI: Soft, Non Tender, Non Distended and Normal Bowel Sounds
Musculoskeletal:No Edema
Neuro: Nonfocal/grossly intact
Acute on chronic HFpEF exacerbation
Acute hypoxic respiratory failure likely secondary to above, wean oxygen as tolerated
- Check I's and O's, daily weight
Continue with IV diuresis
Cardiology following
-Continue dapagliflozin
- Cardiology following. Added spironolactone
Discussed with cardiology, given some improvement with IV diuresis however still complaining of shortness of breath. Pulmonary now following. Also started on Pulmicort along with DuoNeb. Could have component of bronchitis.
Permanent atrial fibrillation
- Continue Eliquis
- Continue metoprolol
- Continue Cardizem
History of pulmonary nodule, suspected COPD however patient denies any lung disease
History of smoking
Trial of DuoNebs; unclear if these helped him. Per patient she followed up with Dr. Garza outpatient. Has been able airflow obstruction without hyperinflation per last PFTs. Per pulmonary she tried Trelegy however did not improve her shortness
of breath in past. Will continue to closely monitor.
Chest x-ray with likely atelectasis. Pro-Spencer neg
pulmonary following
Hyponatremia
Monitor
Essential hypertension
Hypothyroidism
Polymyalgia rheumatica
GERD/gastric ulcer/hiatal hernia
Chronic anemia
- Hemoglobin stable
Spinal stenosis
Anxiety/depression
DNR/DNI
DVT prophylaxis�Eliquis
I spent a total of 52 minutes with the patient or on the floor. More than 50% of this time involved counseling and coordination of care.
Anticipated Discharge: > 48 hours
Subjective/Interval History
-
Date of Service: August 24, 2025
Denies pain
Objective Data
-
Labs:
Laboratory Results
08/24/25
06:36
WBC 6.0
Hgb 12.2
Hct 36.7 L
Plt Count 385
Sodium 132 L
Potassium 4.2
Chloride 86 L
Carbon Dioxide 38 H
BUN 12
Creatinine 0.7
Glucose 90
Calcium 9.4
Vital Signs:
Vital Signs
Temp Pulse Resp BP Pulse Ox
98.4 F 81 20 122/67 94
08/24/25 11:37 08/24/25 11:37 08/24/25 11:37 08/24/25 11:37 08/24/25 11:37
I&O
08/23/25 08/24/25 08/25/25
06:59 06:59 06:59
Intake Total 480 / 480 1500 / 1500
Output Total 1500 / 1500 1600 / 1600
Balance -1020 / -1020 -100 / -100
[2025-08-24 14:29] LABS: B.E. 14.1 mmol/L; HCO3 40.0 mmol/L (21-28); O2 Saturation % 95.5 % (94-98); PCO2 55 mmHg (32-35); PO2 72 mmHg (83-108)
[2025-08-24] MEDS: ELIQUIS 2.5 MG PO (21:14)
[2025-08-25 03:31] VITALS: BP 111/51
[2025-08-25 06:00] VITALS: BMI 25.9
[2025-08-25 06:55] LABS: Hematocrit 37.3 % (37.0-47.0); Hemoglobin 11.9 g/dL (12.0-16.0); Mean Corp Hgb Conc. 31.9 g/dL (33.0-37.0); Mean Corpuscular Volume 96.4 fL (81.0-99.0); Nucleated Red Blood Cells % 0 %; Platelet Count 397 10^3/uL (130-400); Red Cell Dist. Width 15.8 % (11.5-14.5)
[2025-08-25 07:39] LABS: Blood Urea Nitrogen 12 mg/dl (7-17); Calcium 9.7 mg/dl (8.4-10.2); Carbon Dioxide 39 mmol/L (22-30); Chloride 85 mmol/L (98-107); Estimated Creatinine Clearance 50 ml/min; Glucose 88 mg/dl (70-99); Potassium 4.6 mmol/L (3.5-5.1); Sodium 133 mmol/L (135-145); eGFR > 60.00
[2025-08-25 07:45] VITALS: BP 119/58
[2025-08-25] MEDS: DUONEB 3 ML INH ×4 (08:06→19:57)
[2025-08-25] MEDS: PULMICORT 0.5 MG INH ×2 (08:06→19:57)
[2025-08-25] MEDS: LASIX 40 MG IV ×2 (08:54→16:02)
[2025-08-25] MEDS: CARDIZEM CD 240 MG PO ×2 (08:55→20:43)
[2025-08-25] MEDS: PROTONIX 40 MG PO (08:55)
[2025-08-25] MEDS: ALDACTONE 12.5 MG PO (08:55)
[2025-08-25] MEDS: TOPROL XL 50 MG PO ×2 (08:55→21:57)
[2025-08-25] MEDS: ELIQUIS 2.5 MG PO ×2 (08:55→20:43)
[2025-08-25] MEDS: FARXIGA 10 MG PO (08:55)
[2025-08-25] MEDS: LIPITOR 10 MG PO (08:55)
[2025-08-25] MEDS: TYLENOL 650 MG PO ×2 (09:04→20:48)
--- NOTE | 2025-08-25 11:18 | W.PN.CD ---
Today's Communication / Plan
-
- Clinically improved. Continue IV diuresis.
Impression / Plan
-
Rsavg-ig-xawgxuu HFpEF:
-reports orthopnea, PND, weight gain, LE edema. BNP elevated 3510.
-severe in that she is requiring hospitalization and IV diuresis, with close monitoring of labs/tele
-Echo 05/24/25: Normal left ventricular size, and systolic function. Estimated LVEF 65-70%. Mild aortic stenosis. Mild aortic regurgitation. Mild/moderate tricuspid regurgitation. Estimated pulmonary artery pressure of 56 mmHg. Severely elevated
PASP. 4. Compared to 08/31/24: tricuspid regurgitation has progressed from mild to mild/moderate, and PASP has increased from 19 to 56 mmHg.
-lasix increased as OP, but she doesn't feel that she was urinating more with this
-OP visit 06/05/25 weight 129 lbs and currently 133lbs.
-continue lasix 40mg IV bid, aldactone 12.5mg daily
-Net balance is > 1 L negative. still fluid overloaded and on oxygen.
- Clinically doing much better this a.m.
-Farxiga 10mg daily added
-BUN and Cr is stable.
COPD/hx pulmonary nodule:
-patient denied lung disease for me, but this is noted in OP PCP chart
-she is wheezing to assessment and I suspect this could be contributing; no real improvement in bronchospasm with diuresis. ? more significant pulmonary issue than we appreciate.
-defer management to primary team
Permanent AFIB:
-rate-controlled on current meds, monitor telemetry
-continue Eliquis- 5 mg PO BID increased when she presented with higher weight. (weight is now 59.9 kg - < 60 kg, and age 80) Her creatinine is normal.
- Will reduce dose back to 2.5 mg BID
HTN:
-stable on meds, monitor
Hyponatremia:
-monitor with diuresis
Physical Exam
Vital Signs/Labs
Vital Signs
Temp Pulse Resp BP Pulse Ox
97.7 F 70 20 120/58 95
08/25/25 07:45 08/25/25 08:55 08/25/25 08:05 08/25/25 08:55 08/25/25 09:07
08/24/25 08/25/25 08/26/25
06:59 06:59 06:59
Actual Weight 59.903 kg 60.129 kg
08/25/25 05:51
08/25/25 05:51
08/20/25
17:07
Qbd-P-Jtihabyudvr Pept 3510
Physical Exam
Constitutional: No acute distress and Comfortable
EENT: Anicteric and Moist mucous membranes
Cardiovascular: Rhythm/rate is irregular, Pedal edema present and Systolic murmur present
Respiratory: Respiratory effort normal, Crackles Absent and Wheeze Present (Left more than the right)
GI: Soft, Non tender and Normal bowel sounds
Neuro/Psych: Alert, Oriented and AO x 3
Data Reviewed
-
Date of Service: August 25, 2025
Medical Decision Making: Reviewed Test Results, Test Interpretation and Review of Case with other Provider
EKG: Tracing Personally Visualized and interpreted
Echo: Report Reviewed by me
Labs: Labs Reviewed by me
Old Records: Reviewed
--- NOTE | 2025-08-25 11:31 | W.PN.HOSP.TC ---
Today's Communication/Plan
-
Monitor vital signs see plan
Will need home O2 evaluation prior to discharge
Continue with nebs
Continue with IV steroids
Subjectively feeling better today
Assessment / Plan
Assessment / Plan
General: Well Developed, Well Nourished and No Apparent Distress
HEENT: NormoCephalic, Moist mucous membranes and Atraumatic
Respiratory: Clear,+ wheezing
Cardiac: S1/S2, Regular Rhythm and Peripheral Edema
GI: Soft, Non Tender, Non Distended and Normal Bowel Sounds
Musculoskeletal:No Edema
Neuro: Nonfocal/grossly intact
Acute on chronic HFpEF exacerbation
Acute hypoxic respiratory failure likely secondary to above, wean oxygen as tolerated
- Check I's and O's, daily weight
Continue with IV diuresis. clinically feeling better now
Cardiology following
-Continue dapagliflozin
- Cardiology following. Added spironolactone
Discussed with cardiology, given some improvement with IV diuresis however still complaining of shortness of breath. Pulmonary now following. Also started on Pulmicort along with DuoNeb. Could have component of bronchitis.
was started on trial of bipap; could not tolerate
Permanent atrial fibrillation
- Continue Eliquis
- Continue metoprolol
- Continue Cardizem
History of pulmonary nodule, suspected COPD however patient denies any lung disease
History of smoking
Trial of DuoNebs; unclear if these helped him. Per patient she followed up with Dr. Garza outpatient. Has been able airflow obstruction without hyperinflation per last PFTs. Per pulmonary she tried Trelegy however did not improve her shortness
of breath in past. Will continue to closely monitor.
Chest x-ray with likely atelectasis. Pro-Spencer neg
was started on trial of bipap; could not tolerate
pulmonary following
Hyponatremia
Monitor
Essential hypertension
Hypothyroidism
Polymyalgia rheumatica
GERD/gastric ulcer/hiatal hernia
Chronic anemia
- Hemoglobin stable
Spinal stenosis
Anxiety/depression
DNR/DNI
DVT prophylaxis�Eliquis
I spent a total of 51 minutes with the patient or on the floor. More than 50% of this time involved counseling and coordination of care.
Anticipated Discharge: 24 - 48 hours
Subjective/Interval History
-
Date of Service: August 25, 2025
feeling better
Objective Data
-
Labs:
Laboratory Results
08/25/25
05:51
WBC 6.9
Hgb 11.9 L
Hct 37.3
Plt Count 397
Sodium 133 L
Potassium 4.6
Chloride 85 L
Carbon Dioxide 39 H
BUN 12
Creatinine 0.7
Glucose 88
Calcium 9.7
Vital Signs:
Vital Signs
Temp Pulse Resp BP Pulse Ox
97.7 F 70 20 120/58 95
08/25/25 07:45 08/25/25 08:55 08/25/25 08:05 08/25/25 08:55 08/25/25 09:07
I&O
08/24/25 08/25/25 08/26/25
06:59 06:59 06:59
Intake Total 1500 / 1500 660 / 660
Output Total 1600 / 1600 1700 / 1700
Balance -100 / -100 -1040 / -1040
[2025-08-25 11:43] VITALS: BP 141/75
--- NOTE | 2025-08-25 11:49 | W.PN.PUL3 ---
Addendum entered and electronically signed by Yolanda Stubbs DO 08/25/25 14:15:
Pt requires Noninvasive volume ventilation with a target tidal volume due to Acute on Chronic Respiratory Failure caused by COPD. Patient requires Auto EPAP to prevent their airway from collapsing and battery backup in case of power outages which
exceeds the capability of a RAD. Patient is currently on NIV and will need to continue NIV therapy at home. Without NIV therapy, patient is at risk of elevated PaCO2 levels post discharge.
Original Note:
Today's Communication / Plan
-
Tried on BiPAP overnight based on her ABG
She did not tolerate, but is motivated to continue trying
CM consult for home BiPAP set up
Will arrange outpatient follow-up
Further diuresis and CHF management per team
Assessment
-
80-year-old woman with past medical history significant for heart failure with preserved ejection fraction, paroxysmal atrial fibrillation on anticoagulation, hypertension, hypothyroidism, PMR, GERD, gastric ulcer, chronic arthritis with mobility
issues, former smoker, spinal stenosis came with lower extremity swelling and hypoxemia on 08/20/2025.
Pulse ox was down to 72% on room air. proBNP was significantly elevated. Patient was diuresed with some improvement.
We were consulted on 08/23/2025 for evaluation of possible pulmonary process
Shortness of breath: Acute respiratory insufficiency.
proBNP 3000
Negative cardiac biomarker
Chest x-ray: Large paraesophageal hernia/small right pleural effusion.
Negative COVID/negative influenza
Chronic hypercarbic respiratory failure, compensated
-
Conditions present prior admission:
Large paraesophageal hernia seen on 10/05/2024 in the office.
Chronic arthritis
Former smoker [id number] history quit longer than 20 years ago-CT scan without significant emphysema.
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
Mild/moderate airflow obstruction-restrictive lung defect: COPD
PFT 10/05/2024: FEV1/FVC ratio 64%/FEV1 70%/FVC 80%. TLC 65%. RV/TLC ratio 40%. DLCO 33%.
Patient tried Trelegy without success-no improvement in symptoms.
Seen by Dr. Garza-was offered nebulizer therapy but she declined at that time. Was to follow-up in January with a CAT scan but she did not follow through.
Did not qualify for pulmonary rehabilitation due to significant arthritis and mobility issues.
Abnormal CT chest 08/31/2024: Left lower lobe opacity possibly postinflammatory. Rounded atelectasis with associated bronchiectasis.
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
8.8 mm ground glass lung nodule new compared from 2019-recommended to get CAT scan in January but she did not follow through.
Heart failure with preserved ejection fraction
Atrial fibrillation-on anticoagulation.
Mild valvular disease.
Polymyalgia rheumatica
Spinal stenosis with chronic back pain
Ambulatory dysfunction
GERD/hiatal hernia.
Plan:
Previous evaluation by myself in September 2024: Multifactorial shortness of breath from underlying cardiac issues, spinal stenosis, deconditioning, chronic arthritis, paraesophageal hernia with restrictive lung disease.
At that time echocardiogram from 2023 without significant pulmonary hypertension.
-
This admission with increased proBNP in the 3000's status post diuresis
She was noted to be slightly wheezing on exam-oxygenation has improved from 3 L down to 1 L with ambulation per physical therapy assessment.
There has been some partial improvement.
-
Home oxygen assessment prior to discharge-hopefully can wean off prior to going home.
-
From the pulmonary perspective based on pulmonary function testing she has minimal airflow obstruction without hyperinflation.
She has underlying restrictive lung disease
Never diagnosed with sleep apnea but she has metabolic alkalosis, will check ABG and trial CPAP if indicated
AB.4
Trialed with BiPAP but could not tolerate, she is motivated to continue nightly use
Will arrange home BiPAP set up
Patient tried triple therapy with Trelegy in the past without success of improving shortness of breath.
She was offered to transition to nebulized therapy. At that time she wanted to hold off.
On CAT scan only mild emphysema most prominent abnormality is her paraesophageal hernia.
-
Interestingly: She is wheezing bilaterally. Suspect on top of volume overload acute bronchitis.
Flu negative, COVID-negative.
Chronic microaspiration may be a possibility explaining her hypoxemia wheezing and shortness of breath.
We can consider continue nebulizer therapy at home at least 3 times a day together with Pulmicort twice a day as a trial with a short-term follow-up in my office.
If there is no improvement with Pulmicort, consider short course of prednisone.
Hold systemic corticosteroids for now.
She was advised to follow-up with me in January but she never followed through.
-
She has a small ground glass 8.8 mm ground glass lung nodule in the left lung which she was recommended to follow-up with a CAT scan but she never did.
This could be reassessed in the outpatient setting
-
It is interesting that her echocardiogram showed now pulmonary hypertension/right atrium dilatation which was not present back in 2023.
This is of uncertain etiology.
She is on anticoagulation for embolic disease less likely
Suspect related to volume overload from left heart disease-they will be the most common explanation.
In the outpatient setting suggest after proper diuresis repeat echocardiogram, if pulmonary hypertension continues then can consider right heart catheterization to confirm/rule out pulmonary arterial hypertension.
Maintain on IV diuresis
-
Continue oxygen supplementation at 1 L-wean off as able.
Home oxygen assessment prior dc
During our walk-in testing in September 2024 there was no oxygen requirements.
-
Continue physical therapy as tolerated
-
Aspiration precautions
Again, paraesophageal hernia likely contributing to symptoms due to compressive atelectasis on CAT scan.
Short-term follow-up with Dr. Garza after discharge-

Data reviewed:
-
Chest x-ray 08/20/2025: Large hiatal hernia. Small patchy opacity in the right lower lobe atelectasis versus small pleural effusion
CT chest 08/31/2024: Large paraesophageal hernia with compressive atelectasis. Left upper lobe ground glass lung nodule 8.8 mm. New compared from 2019. Mild emphysema.
-
Echocardiogram 05/24/2025: Normal LVEF. Mild aortic stenosis. Mild AR. Mild to moderate TR. Pulmonary artery pressure 56 mmHg. Normal right ventricular size and systolic function. Right atrium is severely dilated
Total time spent on this consultation/encounter __51__ minutes which includes review of history, physical exam, medications, laboratory data, personal review of imaging, extensive review of outpatient records, discussion with care team and
respiratory therapy.
Subjective Data
-
Date of Service:
Date of Service: August 25, 2025
Chief Complaint: Pulmonary Follow Up
Subjective:
pCO2 confirmed elevation
She did not tolerate BiPAP last night but is motivated to continue trying
Objective Data
Data Reviewed
Vital Signs / I&O / Oxygen:
Vital Signs
Temp Pulse Resp BP Pulse Ox
98.5 F 101 18 141/75 95
08/25/25 11:43 08/25/25 11:43 08/25/25 11:43 08/25/25 11:43 08/25/25 11:43
Intake and Output
08/24/25 08/25/25 08/26/25
06:59 06:59 06:59
Intake Total 1500 / 1500 660 / 660
Output Total 1600 / 1600 1700 / 1700
Balance -100 / -100 -1040 / -1040
SaO2 95
Nasal Cannula flow liters per 2
minute
Physical Exam
General: Comfortable and Other (NAD)
HEENT: Normocephalic, Anicteric and Moist Mucous Membranes
Cardiovascular: S1-S2 and Regular Rhythm
Respiratory: Clear and Non-Labored Respirations
GI: Soft, Non Distended and Non Tender
Neurology: Awake, Alert, Oriented and No Motor Deficits
Skin: Warm, Dry and Good Color
Labs/Micro/Reports
Lab Data
08/25/25 05:51
08/25/25 05:51
Laboratory Results
08/24/25
14:07
pH 7.47 H
pCO2 55 H
pO2 72 L
HCO3 40.0 H
O2 Delivery Level on settings
[2025-08-25 15:48] VITALS: BP 130/64
--- NOTE | 2025-08-25 16:18 | CM ---
F/U: JOSE LUIS Mi approached from Pulmonary that patient needs BIPAP and possible Home O2. JOSE LUIS spoke to son Jt who is fine with using [employer], wanted a call from Pulmonary for the reason for the machine, but Pulmonary had left so Pulmonary team will
follow up with the son tomorrow.
Told the son about the BIPAP process and next steps yevgeniy around delivery from an RT. 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
Re: O2, son knows that patient will have a test tomorrow to see if she needs O2. Son aware that if she does, 1 tank is delivered here than concentrator with tubing is delivered to the home. Son knows BIPAP is delivered after she gets home.
CM provided call documentation to [employer], except a script form- Pulmonary left before signing and Hospitalist wants Pulmonary to sign for the BIPAP, Hospitalist will sign for the O2 if needed. Patient declined Home VN, told son who will try to
convince her.
[2025-08-25] MEDS: ATIVAN 0.5 MG PO (21:57)
[2025-08-25 23:15] VITALS: PULSE 81
[2025-08-25 23:24] VITALS: BP 119/68
[2025-08-26 06:00] VITALS: BMI 25.2
[2025-08-26 07:07] LABS: Hematocrit 38.1 % (37.0-47.0); Hemoglobin 12.5 g/dL (12.0-16.0); Mean Corp Hgb Conc. 32.8 g/dL (33.0-37.0); Mean Corpuscular Volume 96.7 fL (81.0-99.0); Nucleated Red Blood Cells % 0 %; Platelet Count 411 10^3/uL (130-400); Red Cell Dist. Width 15.2 % (11.5-14.5)
[2025-08-26 07:15] VITALS: BP 132/69
[2025-08-26] MEDS: DUONEB 3 ML INH ×3 (07:16→19:21)
[2025-08-26] MEDS: PULMICORT 0.5 MG INH ×2 (07:16→19:21)
[2025-08-26 07:40] LABS: Blood Urea Nitrogen 12 mg/dl (7-17); Calcium 9.6 mg/dl (8.4-10.2); Carbon Dioxide 39 mmol/L (22-30); Chloride 85 mmol/L (98-107); Estimated Creatinine Clearance 45 ml/min; Glucose 92 mg/dl (70-99); Potassium 4.3 mmol/L (3.5-5.1); Sodium 131 mmol/L (135-145); eGFR > 60.00
[2025-08-26] MEDS: ALDACTONE 12.5 MG PO (07:57)
[2025-08-26] MEDS: TOPROL XL 50 MG PO ×2 (07:57→19:57)
[2025-08-26] MEDS: LASIX 40 MG IV (07:57)
[2025-08-26] MEDS: LIPITOR 10 MG PO (07:57)
[2025-08-26] MEDS: ELIQUIS 2.5 MG PO ×2 (07:57→19:57)
[2025-08-26] MEDS: FARXIGA 10 MG PO (07:57)
[2025-08-26] MEDS: PROTONIX 40 MG PO (07:57)
[2025-08-26] MEDS: CARDIZEM CD 240 MG PO ×2 (07:57→19:57)
[2025-08-26] MEDS: TYLENOL 650 MG PO ×2 (08:03→19:57)
--- NOTE | 2025-08-26 08:51 | W.PN.PUL.V3 ---
Today's Communication / Plan
-
Wean oxygen.
Home O2 assessment.
Diuresis.
Nebulizers.
Noninvasive ventilation.
Outpatient pulmonary follow-up
Assessment
-
80-year-old woman with past medical history significant for heart failure with preserved ejection fraction, paroxysmal atrial fibrillation on anticoagulation, hypertension, hypothyroidism, PMR, GERD, gastric ulcer, chronic arthritis with mobility
issues, former smoker, spinal stenosis came with lower extremity swelling and hypoxemia on 08/20/2025.
Pulse ox was down to 72% on room air. proBNP was significantly elevated. Patient was diuresed with some improvement.
We were consulted on 08/23/2025 for evaluation of possible pulmonary process
Shortness of breath: Acute respiratory insufficiency.
proBNP 3000
Negative cardiac biomarker
Chest x-ray: Large paraesophageal hernia/small right pleural effusion.
Negative COVID/negative influenza
Chronic hypercarbic respiratory failure, compensated
-
Conditions present prior admission:
Large paraesophageal hernia seen on 10/05/2024 in the office.
Chronic arthritis
Former smoker [id number] history quit longer than 20 years ago-CT scan without significant emphysema.
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
Mild/moderate airflow obstruction-restrictive lung defect: COPD
PFT 10/05/2024: FEV1/FVC ratio 64%/FEV1 70%/FVC 80%. TLC 65%. RV/TLC ratio 40%. DLCO 33%.
Patient tried Trelegy without success-no improvement in symptoms.
Seen by Dr. Garza-was offered nebulizer therapy but she declined at that time. Was to follow-up in January with a CAT scan but she did not follow through.
Did not qualify for pulmonary rehabilitation due to significant arthritis and mobility issues.
Abnormal CT chest 08/31/2024: Left lower lobe opacity possibly postinflammatory. Rounded atelectasis with associated bronchiectasis.
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
8.8 mm ground glass lung nodule new compared from 2019-recommended to get CAT scan in January but she did not follow through.
Heart failure with preserved ejection fraction
Atrial fibrillation-on anticoagulation.
Mild valvular disease.
Polymyalgia rheumatica
Spinal stenosis with chronic back pain
Ambulatory dysfunction
GERD/hiatal hernia.
Plan:
Multifactorial shortness of breath from underlying cardiac issues, spinal stenosis, deconditioning, chronic arthritis, paraesophageal hernia with restrictive lung disease.
Patient tried triple therapy with Trelegy in the past without success of improving shortness of breath.
She was offered to transition to nebulized therapy. At that time she wanted to hold off.
On CAT scan only mild emphysema most prominent abnormality is her paraesophageal hernia.
Respiratory status slowly improving.
Continue supplemental oxygen as needed.
Assess discharge supplemental oxygen needs prior to discharge.
AB.47//72
Continue dual nebs and Pulmicort nebulizers.
Mucolytic's is needed.
Noninvasive ventilation-paperwork signed on chart.
Diuresis as tolerated.
Monitor intake/output, weight, lower extremity edema and renal function.
Replace electrolytes as needed.
She has a small ground glass 8.8 mm ground glass lung nodule in the left lung which she was recommended to follow-up with a CAT scan but she never did.
This could be reassessed in the outpatient setting
It is interesting that her echocardiogram showed now pulmonary hypertension/right atrium dilatation which was not present back in 2023.
This is of uncertain etiology.
She is on anticoagulation thus embolic disease less likely
In the outpatient setting suggest after proper diuresis repeat echocardiogram, if pulmonary hypertension continues then can consider right heart catheterization to confirm/rule out pulmonary arterial hypertension.
Continue physical therapy as tolerated
Again, paraesophageal hernia likely contributing to symptoms due to compressive atelectasis on CAT scan.
Short-term follow-up with Dr. Garza after discharge-

Data reviewed:
Chest x-ray 08/20/2025: Large hiatal hernia. Small patchy opacity in the right lower lobe atelectasis versus small pleural effusion
CT chest 08/31/2024: Large paraesophageal hernia with compressive atelectasis. Left upper lobe ground glass lung nodule 8.8 mm. New compared from 2019. Mild emphysema.
Echocardiogram 05/24/2025: Normal LVEF. Mild aortic stenosis. Mild AR. Mild to moderate TR. Pulmonary artery pressure 56 mmHg. Normal right ventricular size and systolic function. Right atrium is severely dilated
Subjective Data
-
Date of Service:
Date of Service: August 26, 2025
Chief Complaint: Pulmonary Follow Up and Dyspnea Follow Up
Subjective:
Feels a little better, less short of breath, decreased cough, no chest pain or abdominal pain
Review of Systems
General: Other (Per HPI)
Objective Data
Data Reviewed
Vital Signs / I&O:
Vital Signs
Temp Pulse Resp BP Pulse Ox
98.3 F 78 18 132/69 97
08/26/25 07:15 08/26/25 08:29 08/26/25 08:29 08/26/25 07:57 08/26/25 08:29
Intake and Output
08/25/25 08/26/25 08/27/25
06:59 06:59 06:59
Intake Total 660 / 660 900 / 900
Output Total 1700 / 1700 1580 / 1580
Balance -1040 / -1040 -680 / -680
SaO2: 97
Nasal Cannula flow liters per minute: 2
Physical Exam
General: Respiratory Distress (n), Comfortable and Other (NAD)
HEENT: Normocephalic, Anicteric and Moist Mucous Membranes
Cardiovascular: Regular Rhythm
Respiratory: Clear and Non-Labored Respirations
GI: Soft, Non Distended and Non Tender
Neurology: Awake, Alert and No Motor Deficits
Skin: Warm, Dry, Good Color, Cyanosis (n), Jaundice (n) and Rash (n)
Labs/Micro/Reports
Lab Data
08/26/25 06:29
08/26/25 06:29
--- NOTE | 2025-08-26 08:51 | W.PN.CD ---
Today's Communication / Plan
-
Home O2 evaluation
Switch to p.o. Lasix. Will plan to discharge on 40 mg daily with twice daily dosing on Tuesday
Farxiga 10 mg daily and spironolactone 12.5 mg daily added to regimen this admission. Per CM, Farxiga should be $36 for 3 months.
Okay for discharge from a cardiovascular standpoint. She has follow-up with Dr. Kate in 1 month.
Impression / Plan
-
Aonvu-yh-vwrzniz HFpEF:
-reports orthopnea, PND, weight gain, LE edema. BNP elevated 3510.
-severe in that she is requiring hospitalization and IV diuresis, with close monitoring of labs/tele
-Echo 05/24/25: Normal left ventricular size, and systolic function. Estimated LVEF 65-70%. Mild aortic stenosis. Mild aortic regurgitation. Mild/moderate tricuspid regurgitation. Estimated pulmonary artery pressure of 56 mmHg. Severely elevated
PASP. 4. Compared to 08/31/24: tricuspid regurgitation has progressed from mild to mild/moderate, and PASP has increased from 19 to 56 mmHg.
-lasix increased as OP, but she doesn't feel that she was urinating more with this
-she is back down to 129 lb today which is reported dry weight
-continue aldactone 12.5mg daily and Farxiga
-home on PO Lasix 40mg daily with BID dosing MWF
Permanent AFIB:
-rate-controlled on current meds, monitor telemetry
-continue Eliquis- 5 mg PO BID increased when she presented with higher weight. (weight is now 59.9 kg - < 60 kg, and age 80) Her creatinine is normal.
- Will reduce dose back to 2.5 mg BID
Hypoxia:
-pulmonary following. on nebs and IV steroids
-Home BiPAP arranged
-Assess for home O2 today
HTN:
-stable on meds, monitor
Hyponatremia:
-monitor with diuresis
Subjective: Still has a cough but this has been ongoing for years. Shortness of breath is largely back to baseline. Lower extremity edema has resolved.
Physical Exam
Vital Signs/Labs
Vital Signs
Temp Pulse Resp BP Pulse Ox
98.3 F 78 18 132/69 97
08/26/25 07:15 08/26/25 08:29 08/26/25 08:29 08/26/25 07:57 08/26/25 08:51
08/25/25 08/26/25 08/27/25
06:59 06:59 06:59
Actual Weight 132 lb 9 oz 129 lb 4 oz
08/26/25 06:29
08/26/25 06:29
08/20/25
17:07
Cnv-S-Zjrokamehpk Pept 3510
Physical Exam
Constitutional: No acute distress and Comfortable
Cardiovascular: Pedal edema is absent and Rhythm/rate is irregular
Respiratory: Respiratory effort normal and Lungs clear to auscul.
Neuro/Psych: AO x 3
Data Reviewed
-
Date of Service: August 26, 2025
Medical Decision Making: Reviewed Test Results, Test Interpretation and Review of Case with other Provider
EKG: Tracing Personally Visualized and interpreted
Echo: Report Reviewed by me
X-Ray/CT/US/MRI/NUC/PET: Image Personally Visualized and interpreted
Labs: Labs Reviewed by me
--- NOTE | 2025-08-26 10:57 | CM ---
Addendum entered by Ernestine Horne 08/26/25 16:59:
Patient must be home before 2 pm tomorrow for NIV delivery. home oxygen delivered bedside today per [facility].
Original Note:
Spoke with patient bedside.
Patient agreeable to home with [facility].
Home oxygen assessment completed.
NIV form, oxygen assessment, and oxygen order form faxed to [phone].
Per [employer] await approval for NIV. Will not be delivered untill tomorrow morning.
Vito duncan MD.
Plan: home with [facility], NIV and home oxygen. Patient will arrange transportation.
IMM completed.
--- NOTE | 2025-08-26 11:49 | VNURNOTE ---
Home Health Liaison met with patient at bedside to discuss [facility] nurse/therapy, visits, schedule and homebound status. Patient is agreeable and understands that visits at home will be 2-3 x per week to assess and teach medical management. She
confirms that she has a scale at home. Advised pt to have son or daughter present at home for NIV teaching. Patient agreeable. Patient is aware that [facility] will contact them for start of care within a few days after discharge from . Provided
contact number for [facility]. New home 02 and NIV arranged by JOSE LUIS singh/[facility].
[facility] referral completed in [facility].
--- NOTE | 2025-08-26 12:28 | W.PN.HOSP.TC ---
Today's Communication/Plan
-
Monitor vital signs see plan
Need 2 L nasal cannula for home O2 evaluation
ar manager assisting in arranging NIV, should be delivered tomorrow
Continue with Lasix
cw nebs
Assessment / Plan
Assessment / Plan
General: Well Developed, Well Nourished and No Apparent Distress
HEENT: NormoCephalic, Moist mucous membranes and Atraumatic
Respiratory: Clear,+ mild wheezing
Cardiac: S1/S2, Regular Rhythm and Peripheral Edema
GI: Soft, Non Tender, Non Distended and Normal Bowel Sounds
Musculoskeletal:No Edema
Neuro: Nonfocal/grossly intact
Acute on chronic HFpEF exacerbation
Acute hypoxic respiratory failure likely secondary to above, wean oxygen as tolerated
- Check I's and O's, daily weight
Transition to p.o. diuresis per cardiology. clinically feeling better now
Cardiology following
-Continue dapagliflozin
- Cardiology following. Added spironolactone
Discussed with cardiology, given some improvement with IV diuresis however still complaining of shortness of breath. Pulmonary now following. Also started on Pulmicort along with DuoNeb. Could have component of bronchitis.
Started on BiPAP, overnight was able to use it for at least 4 hours. Pulmonary arranging NIV since patient is at risk of elevated PaCO2. Per director of casework department should be delivered tomorrow 08/27
Home O2 evaluation done,Patient is in need of oxygen at 2 liters/minute via nasal cannula continuously due to pulse oximetry of 85% on room air at rest. Oxygen will help to improve hypoxemia. Patient is mobile within the home. DuoNeb therapy has
been tried and is ineffective in treating hypoxemia related symptoms. Oxygen is needed to improve symptoms.
Permanent atrial fibrillation
- Continue Eliquis
- Continue metoprolol
- Continue Cardizem
History of pulmonary nodule, suspected COPD however patient denies any lung disease
History of smoking
Trial of DuoNebs; unclear if these helped him. Per patient she followed up with Dr. Garza outpatient. Has been able airflow obstruction without hyperinflation per last PFTs. Per pulmonary she tried Trelegy however did not improve her shortness
of breath in past. Will continue to closely monitor.
Chest x-ray with likely atelectasis. Pro-Spencer neg
Started on BiPAP, overnight was able to use it for at least 4 hours. Pulmonary arranging NIV since patient is at risk of elevated PaCO2. Per director of casework department should be delivered tomorrow 08/27
pulmonary following
Hyponatremia
Monitor
Essential hypertension
Hypothyroidism
Polymyalgia rheumatica
GERD/gastric ulcer/hiatal hernia
Chronic anemia
- Hemoglobin stable
Spinal stenosis
Anxiety/depression
DNR/DNI
DVT prophylaxis�Eliquis
Anticipated Discharge: Within 24 hours
Subjective/Interval History
-
Date of Service: August 26, 2025
Denies pain
Objective Data
-
Labs:
Laboratory Results
08/26/25
06:29
WBC 6.7
Hgb 12.5
Hct 38.1
Plt Count 411 H
Sodium 131 L
Potassium 4.3
Chloride 85 L
Carbon Dioxide 39 H
BUN 12
Creatinine 0.7
Glucose 92
Calcium 9.6
Vital Signs:
Vital Signs
Temp Pulse Resp BP Pulse Ox
98.3 F 78 18 132/69 97
08/26/25 07:15 08/26/25 08:29 08/26/25 08:29 08/26/25 07:57 08/26/25 08:51
I&O
08/25/25 08/26/25 08/27/25
06:59 06:59 06:59
Intake Total 660 / 660 900 / 900
Output Total 1700 / 1700 1580 / 1580
Balance -1040 / -1040 -680 / -680
[2025-08-26 15:38] VITALS: BP 141/71
[2025-08-26 15:39] VITALS: PULSE 73; O2SAT 93
[2025-08-26] MEDS: ATIVAN 0.5 MG PO (19:57)
[2025-08-26 23:44] VITALS: BP 132/78
[2025-08-27 06:00] VITALS: BMI 25.4
[2025-08-27] MEDS: DUONEB 3 ML INH (07:13)
[2025-08-27] MEDS: PULMICORT 0.5 MG INH (07:13)
[2025-08-27 08:27] LABS: Hematocrit 36.8 % (37.0-47.0); Hemoglobin 11.9 g/dL (12.0-16.0); Mean Corp Hgb Conc. 32.3 g/dL (33.0-37.0); Mean Corpuscular Volume 94.1 fL (81.0-99.0); Nucleated Red Blood Cells % 0 %; Platelet Count 423 10^3/uL (130-400); Red Cell Dist. Width 15.1 % (11.5-14.5)
[2025-08-27 08:28] VITALS: BP 119/66
[2025-08-27] MEDS: FARXIGA 10 MG PO (09:16)
[2025-08-27] MEDS: LIPITOR 10 MG PO (09:16)
[2025-08-27] MEDS: ALDACTONE 12.5 MG PO (09:16)
[2025-08-27] MEDS: CARDIZEM CD 240 MG PO (09:16)
[2025-08-27] MEDS: PROTONIX 40 MG PO (09:16)
[2025-08-27] MEDS: LASIX 40 MG PO (09:17)
[2025-08-27] MEDS: TOPROL XL 50 MG PO (09:17)
[2025-08-27] MEDS: ELIQUIS 2.5 MG PO (09:17)
[2025-08-27] MEDS: TYLENOL 650 MG PO (09:20)
--- NOTE | 2025-08-27 09:44 | CM ---
MD indicated pr ready for discharge today.
Spoke with Felicia at [facility] [phone]. She said portable oxygen delivered to room . Resp therapist to meet in her home for NIV set up today
Felicia said all NIV form, oxygen assessment, and oxygen order form faxed to [phone] was received.
Pt said she agrees with dc today and IMM . Kimberley dgt will drive her home.Pt confirm portable oxygen in room.
Plan: Home with [facility], NIV and home oxygen.
--- NOTE | 2025-08-27 09:46 | W.PN.CD ---
Today's Communication / Plan
-
OK to d/c today
Evaluated for home 02
Farxiga 10 mg daily and spironolactone 12.5 mg daily added to regimen this admission. Per CM, Farxiga should be $36 for 3 months.
Okay for discharge from a cardiovascular standpoint. She has follow-up with Dr. Kate in 1 month.
We will sign off
Impression / Plan
-
[id number] HFpEF:
-reports orthopnea, PND, weight gain, LE edema. BNP elevated 3510.
-severe in that she is requiring hospitalization and IV diuresis, with close monitoring of labs/tele
-Echo 05/24/25: Normal left ventricular size, and systolic function. Estimated LVEF 65-70%. Mild aortic stenosis. Mild aortic regurgitation. Mild/moderate tricuspid regurgitation. Estimated pulmonary artery pressure of 56 mmHg. Severely elevated
PASP. 4. Compared to 08/31/24: tricuspid regurgitation has progressed from mild to mild/moderate, and PASP has increased from 19 to 56 mmHg.
-lasix increased as OP, but she doesn't feel that she was urinating more with this
-she is back down to 129 lb today which is reported dry weight
-continue aldactone 12.5mg daily and Farxiga
-home on PO Lasix 40mg daily with BID dosing MWF
Permanent AFIB:
-rate-controlled on current meds, monitor telemetry
-continue Eliquis- 5 mg PO BID increased when she presented with higher weight. (weight is now 59.9 kg - < 60 kg, and age 80) Her creatinine is normal.
- Will reduce dose back to 2.5 mg BID
Hypoxia:
-pulmonary following. on nebs and IV steroids
-Home BiPAP arranged
-Assess for home O2 today
HTN:
-stable on meds, monitor
Hyponatremia:
-monitor with diuresis
Subjective: cough but this has been ongoing for years. Shortness of breath is largely back to baseline. Lower extremity edema has resolved.
Physical Exam
Vital Signs/Labs
Vital Signs
Temp Pulse Resp BP Pulse Ox
97.5 F 63 18 119/66 99
08/27/25 08:28 08/27/25 08:28 08/27/25 08:28 08/27/25 08:28 08/27/25 08:28
08/26/25 08/27/25 08/28/25
06:59 06:59 06:59
Actual Weight 129 lb 4 oz 130 lb 2 oz
08/27/25 07:29
08/20/25
17:07
Mts-L-Pqditxsozca Pept 3510
Physical Exam
Constitutional: No acute distress and Comfortable
EENT: Anicteric
Cardiovascular: Pedal edema is absent and Rhythm/rate is irregular
Respiratory: Respiratory effort normal, Wheeze Present and Rhonchi Present
GI: Soft
Neuro/Psych: AO x 3
Data Reviewed
-
Date of Service: August 27, 2025
EKG: Tracing Personally Visualized and interpreted (af)
Echo: Report Reviewed by me
Labs: Labs Reviewed by me
[2025-08-27 09:56] LABS: Blood Urea Nitrogen 15 mg/dl (7-17); Calcium 9.6 mg/dl (8.4-10.2); Chloride 85 mmol/L (98-107); Estimated Creatinine Clearance 45 ml/min; Glucose 89 mg/dl (70-99); Potassium 4.2 mmol/L (3.5-5.1); Sodium 129 mmol/L (135-145); eGFR > 60.00
--- NOTE | 2025-08-27 10:07 | W.PN.HOSP.TC ---
Addendum entered and electronically signed by Charles Cooper MD 08/27/25 10:13:
Mild hyponatremia
Monitor, repeat BMP later this week
Original Note:
Today's Communication/Plan
-
Monitor vital signs see plan
Patient has home O2 now
Discussed with pulmonary, will discharge with nebulizer
Continue with Lasix
NIV will be delivered today
Discussed with cardiology and pulmonary, okay to discharge home
Time of discharge 38 minutes
Assessment / Plan
Assessment / Plan
General: Well Developed, Well Nourished and No Apparent Distress
HEENT: NormoCephalic, Moist mucous membranes and Atraumatic
Respiratory: Clear,+ mild wheezing
Cardiac: S1/S2, Regular Rhythm and Peripheral Edema
GI: Soft, Non Tender, Non Distended and Normal Bowel Sounds
Musculoskeletal:No Edema
Neuro: Nonfocal/grossly intact
Acute on chronic HFpEF exacerbation
Acute hypoxic respiratory failure likely secondary to above, wean oxygen as tolerated
- Check I's and O's, daily weight
Transition to p.o. diuresis per cardiology. clinically feeling better now
Cardiology following
-Continue dapagliflozin
- Cardiology following. Added spironolactone
Discussed with cardiology, given some improvement with IV diuresis however still complaining of shortness of breath. Pulmonary now following. Also started on Pulmicort along with DuoNeb. Could have component of bronchitis.
Started on BiPAP, overnight was able to use it for at least 4 hours. Pulmonary arranging NIV since patient is at risk of elevated PaCO2. Discussed with pillowcase turner and pulmonary. NIV will be delivered today.
Home O2 evaluation done,Patient is in need of oxygen at 2 liters/minute via nasal cannula continuously due to pulse oximetry of 85% on room air at rest. Oxygen will help to improve hypoxemia. Patient is mobile within the home. DuoNeb therapy has
been tried and is ineffective in treating hypoxemia related symptoms. Oxygen is needed to improve symptoms.
Permanent atrial fibrillation
- Continue Eliquis
- Continue metoprolol
- Continue Cardizem
History of pulmonary nodule, suspected COPD however patient denies any lung disease
History of smoking
Trial of DuoNebs; unclear if these helped him. Per patient she followed up with Dr. Garza outpatient. Has been able airflow obstruction without hyperinflation per last PFTs. Per pulmonary she tried Trelegy however did not improve her shortness
of breath in past. Will continue to closely monitor.
Chest x-ray with likely atelectasis. Pro-Spencer neg
Started on BiPAP, overnight was able to use it for at least 4 hours. Pulmonary arranging NIV since patient is at risk of elevated PaCO2.
pulmonary following
Hyponatremia
Monitor
Essential hypertension
Hypothyroidism
Polymyalgia rheumatica
GERD/gastric ulcer/hiatal hernia
Chronic anemia
- Hemoglobin stable
Spinal stenosis
Anxiety/depression
DNR/DNI
DVT prophylaxis�Eliquis
Anticipated Discharge: Today
Subjective/Interval History
-
Date of Service: August 27, 2025
Denies pain
Objective Data
-
Labs:
Laboratory Results
08/27/25
07:29
WBC 7.3
Hgb 11.9 L
Hct 36.8 L
Plt Count 423 H
Sodium 129 L
Potassium 4.2
Chloride 85 L
Carbon Dioxide Pending
BUN 15
Creatinine 0.7
Glucose 89
Calcium 9.6
Vital Signs:
Vital Signs
Temp Pulse Resp BP Pulse Ox
97.5 F 63 18 119/66 99
08/27/25 08:28 08/27/25 08:28 08/27/25 08:28 08/27/25 08:28 08/27/25 08:28
I&O
08/26/25 08/27/25 08/28/25
06:59 06:59 06:59
Intake Total 900 / 900 720 / 720
Output Total 1580 / 1580 950 / 950
Balance -680 / -680 -230 / -230
--- NOTE | 2025-08-27 11:05 | W.PN.PUL.V3 ---
Today's Communication / Plan
-
.
Home BiPAP arranged.
Wean oxygen.
Continue nebulizers.
Outpatient pulmonary follow-up
Assessment
-
80-year-old woman with past medical history significant for heart failure with preserved ejection fraction, paroxysmal atrial fibrillation on anticoagulation, hypertension, hypothyroidism, PMR, GERD, gastric ulcer, chronic arthritis with mobility
issues, former smoker, spinal stenosis came with lower extremity swelling and hypoxemia on 08/20/2025.
Pulse ox was down to 72% on room air. proBNP was significantly elevated. Patient was diuresed with some improvement.
We were consulted on 08/23/2025 for evaluation of possible pulmonary process
Shortness of breath: Acute respiratory insufficiency.
proBNP 3000
Negative cardiac biomarker
Chest x-ray: Large paraesophageal hernia/small right pleural effusion.
Negative COVID/negative influenza
Chronic hypercarbic respiratory failure, compensated
-
Conditions present prior admission:
Large paraesophageal hernia seen on 10/05/2024 in the office.
Chronic arthritis
Former smoker [id number] history quit longer than 20 years ago-CT scan without significant emphysema.
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
Mild/moderate airflow obstruction-restrictive lung defect: COPD
PFT 10/05/2024: FEV1/FVC ratio 64%/FEV1 70%/FVC 80%. TLC 65%. RV/TLC ratio 40%. DLCO 33%.
Patient tried Trelegy without success-no improvement in symptoms.
Seen by Dr. Garza-was offered nebulizer therapy but she declined at that time. Was to follow-up in January with a CAT scan but she did not follow through.
Did not qualify for pulmonary rehabilitation due to significant arthritis and mobility issues.
Abnormal CT chest 08/31/2024: Left lower lobe opacity possibly postinflammatory. Rounded atelectasis with associated bronchiectasis.
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
8.8 mm ground glass lung nodule new compared from 2019-recommended to get CAT scan in January but she did not follow through.
Heart failure with preserved ejection fraction
Atrial fibrillation-on anticoagulation.
Mild valvular disease.
Polymyalgia rheumatica
Spinal stenosis with chronic back pain
Ambulatory dysfunction
GERD/hiatal hernia.
Plan:
Multifactorial shortness of breath from underlying cardiac issues, spinal stenosis, deconditioning, chronic arthritis, paraesophageal hernia with restrictive lung disease.
Patient tried triple therapy with Trelegy in the past without success of improving shortness of breath.
She was offered to transition to nebulized therapy. At that time she wanted to hold off.
On CAT scan only mild emphysema most prominent abnormality is her paraesophageal hernia.
Respiratory status slowly improving.
Continue supplemental oxygen as needed.
Assess discharge supplemental oxygen needs prior to discharge.
AB.47//72
Continue dual nebs and Pulmicort nebulizers.
Mucolytic's is needed.
Noninvasive ventilation-paperwork signed on chart.
Diuresis continues as tolerated
Monitor intake/output, weight, lower extremity edema and renal function.
Replace electrolytes as needed.
She has a small ground glass 8.8 mm ground glass lung nodule in the left lung which she was recommended to follow-up with a CAT scan but she never did.
This could be reassessed in the outpatient setting
It is interesting that her echocardiogram showed now pulmonary hypertension/right atrium dilatation which was not present back in 2023.
This is of uncertain etiology.
She is on anticoagulation thus embolic disease less likely
In the outpatient setting suggest after proper diuresis repeat echocardiogram, if pulmonary hypertension continues then can consider right heart catheterization to confirm/rule out pulmonary arterial hypertension.
Continue physical therapy as tolerated
Again, paraesophageal hernia likely contributing to symptoms due to compressive atelectasis on CAT scan.
Short-term follow-up with Dr. Garza after discharge-

Data reviewed:
Chest x-ray 08/20/2025: Large hiatal hernia. Small patchy opacity in the right lower lobe atelectasis versus small pleural effusion
CT chest 08/31/2024: Large paraesophageal hernia with compressive atelectasis. Left upper lobe ground glass lung nodule 8.8 mm. New compared from 2020. Mild emphysema.
Echocardiogram 05/24/2025: Normal LVEF. Mild aortic stenosis. Mild AR. Mild to moderate TR. Pulmonary artery pressure 56 mmHg. Normal right ventricular size and systolic function. Right atrium is severely dilated
Subjective Data
-
Date of Service:
Date of Service: August 27, 2025
Chief Complaint: Pulmonary Follow Up and Dyspnea Follow Up
Subjective:
Still with cough, no increased shortness of breath, no chest pain, tolerating BiPAP, but the mask head gear hurts her forehead, no abdominal pain
Review of Systems
General: Other ( per HPI)
Objective Data
Data Reviewed
Vital Signs / I&O:
Vital Signs
Temp Pulse Resp BP Pulse Ox
97.5 F 63 18 119/66 99
08/27/25 08:28 08/27/25 08:28 08/27/25 08:28 08/27/25 08:28 08/27/25 10:59
Intake and Output
08/26/25 08/27/25 08/28/25
06:59 06:59 06:59
Intake Total 900 / 900 720 / 720
Output Total 1580 / 1580 950 / 950
Balance -680 / -680 -230 / -230
SaO2: 99
Nasal Cannula flow liters per minute: 2
Physical Exam
General: Respiratory Distress (n), Comfortable and Other (NAD)
HEENT: Normocephalic, Anicteric and Moist Mucous Membranes
Cardiovascular: Regular Rhythm
Respiratory: Clear and Non-Labored Respirations
GI: Soft, Non Distended and Non Tender
Neurology: Awake, Alert and No Motor Deficits
Skin: Warm, Dry, Good Color, Cyanosis (n), Jaundice (n) and Rash (n)
Labs/Micro/Reports
Lab Data
08/27/25 07:29
08/27/25 07:29
[2025-08-27 11:31] VITALS: BP 128/62
[2025-08-27 11:32] LABS: Carbon Dioxide 35 mmol/L (22-30)
--- NOTE | 2025-08-27 13:57 | W.DCSUMMARY ---
Discharge Summary
Discharge Data
Date of Admission: 08/20/25
Date of Discharge: 08/27/25
-
Pending Results: No
Hospital Course
80-year-old female with past medical history of CHF, permanent atrial fibrillation, pulmonary nodule, suspected obstructive lung disease with COPD, essential hypertension, hypothyroidism, polymyalgia rheumatica, GERD, gastric ulcer, hiatal hernia,
chronic anemia, spinal stenosis, anxiety, depression came to the hospital with acute hypoxic respiratory failure secondary to acute on chronic CHF exacerbation. Patient was seen by cardiology throughout hospitalization and initially was started on
IV Lasix which continued to improve her symptoms. She was also started on Farxiga and aldactone. Once patient symptoms continue to improve her Lasix was transition to oral prior to discharge. She was also seen by pulmonary due to her shortness of
breath as there appeared to have some pulmonary component. Per pulmonary patient was approved for noninvasive ventilator due to hypercarbia. She also had home O2 evaluation done and she qualified for 2 L of nasal cannula continuous. Patient also
did get nebulizer treatment which was continued upon discharge. Once her symptoms continue to improve and she was feeling better, she was then discharged home with instructions to follow-up with all her physicians outpatient.
Discharge Plan
-
Patient Disposition: Home with Home Care
Discharge Diagnosis/Procedures: [id number] HFpEF
Acute hypoxic respiratory insufficiency
Permanent atrial fibrillation
Suspected COPD
Hyponatremia
Condition: Fair
Diet: Low Cholesterol
Activity: As tolerated
Driving Restrictions: As prior to admission
Bathing Restrictions: None
Blood Work: BMP later this week with primary care provider
Instructions: *CBC Heart Failure Instructions
Referrals:
Cal Kate MD [Active, Cardiology] - 09/25/25 3:40 pm
Jerri Sanchez MD [Family Provider, Family Practice] - in less than 1 week
Stephane Calderon MD [Active, Pulmonary Medicine] - in three to four weeks
Referral Note: 6MWT
Prescriptions:
New
ipratropium-albuterol 0.5 mg-3 mg(2.5 mg base)/3 mL Solution For Nebulization
3 ml inhalation R Q4HPRN PRN (Reason: sob or wheezing) Qty: 180 0RF
spironolactone 25 mg Tablet
12.5 mg PO DAILY Qty: 30 0RF
dapagliflozin propanediol 10 mg Tablet
10 mg PO DAILY Qty: 30 0RF
budesonide 0.5 mg/2 mL Suspension For Nebulization
0.5 mg inhalation R BID Qty: 60 0RF
(DME) nebulizer and compressor Device
See Rx Instructions .Route Qty: 1 0RF
Rx Instructions:
As directed
furosemide [Lasix] 40 mg tablet
40 mg PO Q OTHER DAY Qty: 30 0RF
Rx Instructions:
Tuesday,Tuesday and Tuesday
Continued
atorvastatin 10 MG tablet
10 mg PO DAILY
diltiazem HCl 240 MG capsule,extended release 24hr
240 mg PO BID
Patient Comments:
with 120mg tab
Eliquis 5 MG tablet
2.5 mg PO BID
pantoprazole 40 mg Tablet,Delayed Release (Dr/Ec)
40 mg PO DAILY
metoprolol succinate 50 MG tablet extended release 24 hr
50 mg PO HS 30 Days Qty: 90 0RF
Rx Instructions:
Dose changed from 50 mg twice a day to 100 mg in the morning and 50 in the evening
furosemide 40 mg tablet
40 mg PO DAILY
metoprolol succinate 100 mg tablet extended release 24 hr
50 mg PO DAILY
Rx Instructions:
Dose changed from 50 mg twice a day to 100 mg in the morning and 50 in the evening
Discharge Orders:
Discharge Patient (As Directed); Ordered 08/27/25
Ordered By: Charles Cooper
Discharge Date and Time
Discharge Date/Time: 08/27/25 11:51
Print Language: KHMER
--- NOTE | 2025-08-28 13:39 | W.HF.CON ---
Heart Failure
- LV Function
Left ventricular function study result: LV Ejection fraction >/= 50% (ECHO 05/24/25)
Ejection Fraction Percentage: 65-70
- ARNI
Patient already on ARNI: No
Heart Failure ARNI Not Indicated: LV Ejection Fraction >/= 40%
- ACEI/ARB
Patient already on ACEI/ARB: No
Heart Failure ACEI/ARB Not Indicated: LV Ejection Fraction > 40%
- Beta Francia
Patient already on Evidence Based Beta Francia: No
Heart Failure Evidence Based Beta Francia Not Indicated: LV Ejection Fraction > 40%
- Mineralocorticord Receptor Antagonist
Patient already on MRA: Yes
- SGLT-2 Inhibitor
Patient already on SGLT-2 Inhibitor: Yes
- Afib Anticoagulation
Patient already on Anticoagulation for Afib: Yes
- NYHA CHF Classification
NYHA CHF Classification Level: Class III - Symptoms w/ min exertion, interferes w/ nml daily activity (COPD)
- ACC/AHA Stage
ACC/AHA Stage: Stage C: Symptomatic Heart Failure
== END 2025-08-27 11:51 | disposition home health service (06) | DRG 291 ==
LOC: 4 EAST ACU 20:25
PROVIDERS: Internal Medicine; ADMITTING PHYSICIAN Hospitalist; ATTENDING PHYSICIAN Internal Medicine; CONSULT PHYSICIAN Internal Medicine Cardiovascular Disease; CONSULT PHYSICIAN Internal Medicine Critical Care Medicine; EMERGENCY PHYSICIAN Emergency Medicine; FAMILY PHYSICIAN Family Medicine
PROC: 5A09357 Assistance with Respiratory Ventilation, Less than 24 Consecutive Hours, Continuous Positive Airway Pressure (ICD-10-PCS; 2025-08-25)
DX: I11.0 Hypertensive heart disease with heart failure (principal); I50.33 Acute on chronic diastolic (congestive) heart failure; J96.01 Acute respiratory failure with hypoxia; I48.21 Permanent atrial fibrillation; E87.1 Hypo-osmolality and hyponatremia; J98.11 Atelectasis; J44.9 Chronic obstructive pulmonary disease, unspecified; D64.9 Anemia, unspecified; E03.9 Hypothyroidism, unspecified; F32.A Depression, unspecified; F41.9 Anxiety disorder, unspecified; G89.29 Other chronic pain; I27.20 Pulmonary hypertension, unspecified; I70.8 Atherosclerosis of other arteries; J43.9 Emphysema, unspecified; J47.9 Bronchiectasis, uncomplicated; J98.4 Other disorders of lung; K21.9 Gastro-esophageal reflux disease without esophagitis; M48.00 Spinal stenosis, site unspecified; M35.3 Polymyalgia rheumatica; K25.9 Gastric ulcer, unspecified as acute or chronic, without hemorrhage or perforation; K44.9 Diaphragmatic hernia without obstruction or gangrene; Z66 Do not resuscitate; Z11.52 Encounter for screening for COVID-19; Z87.891 Personal history of nicotine dependence; Z79.899 Other long term (current) drug therapy; Z79.01 Long term (current) use of anticoagulants
CPT/HCPCS: 36600; 71045; 80048; 80053; 82805; 83880; 84145; 85025; 87502; 87811; 93005; 94640; 94660; 96374; 96375; 97116; 97162; 97530; 99285